=== PATIENT | male | born 1970 ===

== ENCOUNTER 2020-05-16 09:29 | Outpatient (REF) | payer OTHER, SELFPAY | END 2020-05-16 09:30 | disposition home or self-care (01) | LOC: HO.LAB 09:29 | PROVIDERS: PCP Physician Assistant; Visit Provider Nurse Practitioner Family | DX: Z13.89 Encounter for screening for other disorder (principal) ==

== ENCOUNTER 2020-05-28 09:36 | Outpatient (REF) | payer OTHER, SELFPAY ==
[2020-05-28 10:24] LABS: MANUAL DIFF FLAG NO
[2020-05-28 10:30] LABS: Basophils Percent Auto 0.2 % (0-2); Eosinophils Absolute Auto 0.2 X10*3/uL (0.0-0.4); Eosinophils Percent Auto 4.1 % (0-4); Hematocrit 42.4 % (42-52); Hemoglobin 14.8 g/dl (14.0-18.0); Lymphocytes Absolute Auto 2.1 X10*3/uL (1.2-4.9); Lymphocytes Percent Auto 46.5 % (20-40); Mean Corpuscular HGB Conc 34.9 g/dl (31.0-36.0); Mean Corpuscular Hemoglobin 32.2 pg (27.0-33.0); Mean Corpuscular Volume 92.2 fL (80-98); Mean Platelet Volume 10.6 fL (9.4-12.4); Monocytes Absolute Auto 0.5 X10*3/uL (0.1-1.2); Monocytes Percent Auto 11.1 % (2-11); Neutrophils Absolute Auto 1.7 X10*3/uL (2.0-8.3); Neutrophils Percent Auto 38.1 % (45-73); Platelet Count 223 X10*3/uL (160-400); Red Cell Distribution Width 12.5 % (11.0-16.0); White Blood Count 4.4 X10*3/uL (4.8-10.8)
[2020-05-28 11:19] LABS: Anion Gap 12 (12-20); Blood Urea Nitrogen 12 mg/dL (9-16); Calcium 9.4 mg/dL (8.4-10.2); Carbon Dioxide 28 mmol/L (22-29); Chloride 103 mmol/L (96-108); Cholesterol 208 mg/dL; Estimated Glomerular Filt Rate > 60; Glucose Fasting 92 mg/dL (60-99); HDL Cholesterol 52 mg/dL; LDL Cholesterol Calculated 122 mg/dl; Potassium 4.4 mmol/l (3.3-5.1); Sodium 139 mmol/L (135-145); Triglycerides 173 mg/dL
== END 2020-05-28 09:37 | disposition home or self-care (01) ==
LOC: HO.LAB 09:36
PROVIDERS: PCP Physician Assistant; Visit Provider Nurse Practitioner Family
DX: R42 Dizziness and giddiness (principal)
CPT/HCPCS: 36415; 80048; 80061; 85025

== ENCOUNTER 2020-10-31 09:49 | Outpatient (REF) | payer OTHER, SELFPAY ==
[2020-10-31 12:01] LABS: Hematocrit 40.8 % (42-52); Hemoglobin 13.9 g/dl (14.0-18.0); Mean Corpuscular HGB Conc 34.1 g/dl (31.0-36.0); Mean Corpuscular Hemoglobin 31.4 pg (27.0-33.0); Mean Corpuscular Volume 92.1 fL (80-98); Mean Platelet Volume 10.8 fL (9.4-12.4); Platelet Count 194 X10*3/uL (160-400); Red Blood Count 4.43 X10*6/uL (4.60-5.80); Red Cell Distribution Width 12.7 % (11.0-16.0)
[2020-10-31 12:11] LABS: Alanine Aminotransferase 34 U/L (0-40); Albumin Level 4.6 g/dL (3.5-5.0); Alkaline Phosphatase 56 U/L (39-117); Anion Gap 12 (12-20); Aspartate Amino Transferase 31 U/L (5-37); Bilirubin Total 0.6 mg/dL (0.0-1.0); Blood Urea Nitrogen 12 mg/dL (9-16); Calcium 9.3 mg/dL (8.4-10.2); Carbon Dioxide 24 mmol/L (22-29); Chloride 106 mmol/L (96-108); Cholesterol 198 mg/dL; Estimated Glomerular Filt Rate > 60; Glucose Fasting 87 mg/dL (60-99); HDL Cholesterol 45 mg/dL; Iron 88 mcg/dL (45-160); LDL Cholesterol Calculated 119 mg/dl; Percent Iron Saturation 28 % (15-50); Potassium 4.1 mmol/L (3.3-5.1); Sodium 138 mmol/L (135-145); Total Iron Binding Capacity 309 mcg/dL (228-428); Total Protein 7.9 g/dL (6.5-8.0); Triglycerides 173 mg/dL; Unsaturated Iron Binding 221 ug/dL
[2020-10-31 12:12] LABS: TSH reflex Free T4 0.69 uIU/mL (0.32-4.0)
[2020-10-31 12:29] LABS: Folate 14.7 ng/mL (> or = 4.0); Vitamin B12 233 pg/mL (200-900)
[2020-10-31 12:45] LABS: Microalbum/Creatinine Ratio Ur 7.6 ug/mg cr
[2020-10-31 12:59] LABS: Prostate Specific Antigen Scr 1.27 ng/mL (<0.05-4.0)
== END 2020-10-31 09:50 | disposition home or self-care (01) ==
LOC: HO.LAB 09:49
PROVIDERS: PCP Physician Assistant; Visit Provider Physician Assistant
DX: Z12.5 Encounter for screening for malignant neoplasm of prostate (principal); D50.9 Iron deficiency anemia, unspecified; G25.81 Restless legs syndrome; I10 Essential (primary) hypertension
CPT/HCPCS: 36415; 80053; 80061; 82043; 82607; 82746; 83540; 84153; 84443; 85027

== ENCOUNTER 2021-03-17 09:36 | Outpatient (REF) | payer OTHER, SELFPAY ==
[2021-03-17 10:27] LABS: Hematocrit 42.6 % (42-52); Hemoglobin 14.6 g/dl (14.0-18.0); Mean Corpuscular HGB Conc 34.3 g/dl (31.0-36.0); Mean Corpuscular Hemoglobin 31.5 pg (27.0-33.0); Mean Platelet Volume 10.7 fL (9.4-12.4); Platelet Count 201 X10*3/uL (160-400); Red Blood Count 4.63 X10*6/uL (4.60-5.80); Red Cell Distribution Width 12.5 % (11.0-16.0)
[2021-03-17 10:51] LABS: Alanine Aminotransferase 56 U/L (0-40); Albumin Level 4.6 g/dL (3.5-5.0); Alkaline Phosphatase 62 U/L (39-117); Anion Gap 11 (12-20); Aspartate Amino Transferase 42 U/L (5-37); Bilirubin Total 0.4 mg/dL (0.0-1.0); Blood Urea Nitrogen 10 mg/dL (9-16); Calcium 9.7 mg/dL (8.4-10.2); Carbon Dioxide 25 mmol/L (22-29); Chloride 106 mmol/L (96-108); Cholesterol 216 mg/dL; Estimated Average Glucose 111 mg/dL; Estimated Glomerular Filt Rate > 60; Glucose Fasting 96 mg/dL (60-99); HDL Cholesterol 48 mg/dL; Hemoglobin A1c % 5.5 %; Iron 52 mcg/dL (45-160); LDL Cholesterol Calculated 136 mg/dl; Percent Iron Saturation 15 % (15-50); Potassium 4.6 mmol/L (3.3-5.1); Sodium 137 mmol/L (135-145); Total Iron Binding Capacity 338 mcg/dL (228-428); Total Protein 8.2 g/dL (6.5-8.0); Triglycerides 162 mg/dL; Unsaturated Iron Binding 286 ug/dL
[2021-03-17 11:15] LABS: TSH reflex Free T4 1.27 uIU/mL (0.32-4.0)
== END 2021-03-17 09:37 | disposition home or self-care (01) ==
LOC: HO.LAB 09:36
PROVIDERS: PCP Physician Assistant; Visit Provider Physician Assistant
DX: I10 Essential (primary) hypertension (principal); D50.9 Iron deficiency anemia, unspecified; R51.9 Headache, unspecified
CPT/HCPCS: 36415; 80053; 80061; 83036; 83540; 84443; 85027

== ENCOUNTER 2021-05-26 10:07 | Outpatient (REF) | payer OTHER, SELFPAY ==
--- NOTE | ~2021-05-26 | US_ITS ---
EXAMINATION: US ABDOMEN COMPLETE CLINICAL INFORMATION: Elevated LFTs. COMPARISON: Renal ultrasound with bladder 10/12/2017. TECHNIQUE: Real-time imaging of the abdominal viscera. Technically difficult study secondary to bowel gas. FINDINGS: PANCREAS: Normal. ABDOMINAL AORTA: Proximal and mid abdominal aorta are not well visualized due to bowel gas. The distal abdominal aorta is normal in caliber. INFERIOR VENA CAVA: Visualized portions are normal. LIVER: The liver is normal in size. The liver contour is normal. The liver echotexture is increased. No focal hepatic lesion. There is no intrahepatic biliary duct dilatation seen. GALLBLADDER: Normal. The gallbladder is physiologically distended without evidence of stones, sludge, polyps, wall thickening or pericholecystic fluid. COMMON BILE DUCT: Normal in caliber measuring 0.23 cm in diameter. RIGHT KIDNEY: Normal. No hydronephrosis. No renal calculi or focal parenchymal lesions. The kidney measures 11.9 cm in maximum dimension. LEFT KIDNEY: Normal. No hydronephrosis. No renal calculi or focal parenchymal lesions. The kidney measures 11.0 cm in maximum dimension. SPLEEN: Normal. The spleen measures 9.0 cm in maximum dimension. FREE FLUID: None. US/US abdomen complete IMPRESSION: Limited exam. Echogenic liver probably representing fatty infiltration. Limited visualization of the abdominal aorta.
== END 2021-05-26 10:08 | disposition home or self-care (01) ==
LOC: HO.HMGCX 10:07
PROVIDERS: PCP Physician Assistant; Visit Provider Physician Assistant
DX: R79.89 Other specified abnormal findings of blood chemistry (principal)
CPT/HCPCS: 76700

== ENCOUNTER 2021-09-22 09:38 | Outpatient (REF) | payer OTHER, SELFPAY ==
[2021-09-22 10:31] LABS: Hematocrit 43.4 % (42.0-52.0); Hemoglobin 14.5 g/dl (14.0-18.0); Mean Corpuscular HGB Conc 33.4 g/dl (31.0-36.0); Mean Corpuscular Hemoglobin 30.9 pg (27.0-33.0); Mean Corpuscular Volume 92.5 fL (80.0-98.0); Mean Platelet Volume 10.6 fL (9.4-12.4); Platelet Count 208 X10*3/uL (160-400); Red Blood Count 4.69 X10*6/uL (4.60-5.80); Red Cell Distribution Width 12.5 % (11.0-16.0); White Blood Count 4.5 X10*3/uL (4.8-10.8)
[2021-09-22 11:07] LABS: Creatinine Urine 249.33 mg/dL; Microalbum/Creatinine Ratio Ur 9.6 ug/mg cr
[2021-09-22 11:11] LABS: Alanine Aminotransferase 44 U/L (0-40); Albumin Level 4.7 g/dL (3.5-5.0); Alkaline Phosphatase 63 U/L (39-117); Anion Gap 12 (12-20); Aspartate Amino Transferase 32 U/L (5-37); Bilirubin Total 0.8 mg/dL (0.0-1.0); Blood Urea Nitrogen 12 mg/dL (9-16); Calcium 9.7 mg/dL (8.4-10.2); Carbon Dioxide 27 mmol/L (22-29); Chloride 105 mmol/L (96-108); Cholesterol 216 mg/dL; Estimated Glomerular Filt Rate > 60; Glucose Fasting 93 mg/dL (60-99); HDL Cholesterol 48 mg/dL; LDL Cholesterol Calculated 137 mg/dl; Potassium 4.4 mmol/L (3.3-5.1); Sodium 140 mmol/L (135-145); Total Protein 8.4 g/dL (6.5-8.0); Triglycerides 157 mg/dL
[2021-09-22 11:27] LABS: Prostate Specific Antigen Scr 0.93 ng/mL (<0.05-4.0); TSH reflex Free T4 0.64 uIU/mL (0.32-4.0)
== END 2021-09-22 09:39 | disposition home or self-care (01) ==
LOC: HO.LAB 09:38
PROVIDERS: PCP Physician Assistant; Visit Provider Physician Assistant
DX: I10 Essential (primary) hypertension (principal); Z12.5 Encounter for screening for malignant neoplasm of prostate
CPT/HCPCS: 36415; 80053; 80061; 82043; 84153; 84443; 85027

== ENCOUNTER → 2021-10-14 10:43 | Outpatient (REF) | payer OTHER, SELFPAY | LOC: HO.SL 10:43 | PROVIDERS: PCP Physician Assistant; Visit Provider Physician Assistant | DX: Z13.89 Encounter for screening for other disorder (principal) ==

== ENCOUNTER 2022-03-15 09:42 | Outpatient (REF) | payer OTHER, SELFPAY ==
[2022-03-15 10:56] LABS: Hematocrit 42.2 % (42.0-52.0); Hemoglobin 14.5 g/dl (14.0-18.0); Mean Corpuscular HGB Conc 34.4 g/dl (31.0-36.0); Mean Corpuscular Hemoglobin 31.5 pg (27.0-33.0); Mean Corpuscular Volume 91.7 fL (80.0-98.0); Mean Platelet Volume 10.5 fL (9.4-12.4); Platelet Count 191 X10*3/uL (160-400); Red Cell Distribution Width 12.3 % (11.0-16.0); White Blood Count 4.3 X10*3/uL (4.8-10.8)
[2022-03-15 11:31] LABS: Alanine Aminotransferase 40 U/L (0-40); Albumin Level 4.5 g/dL (3.5-5.0); Alkaline Phosphatase 55 U/L (39-117); Anion Gap 14 (12-20); Aspartate Amino Transferase 32 U/L (5-37); Bilirubin Total 0.7 mg/dL (0.0-1.0); Blood Urea Nitrogen 15 mg/dL (9-16); Calcium 9.3 mg/dL (8.4-10.2); Carbon Dioxide 26 mmol/L (22-29); Chloride 103 mmol/L (96-108); Cholesterol 216 mg/dL; Estimated Glomerular Filt Rate > 60; Glucose Fasting 95 mg/dL (60-99); HDL Cholesterol 47 mg/dL; LDL Cholesterol Calculated 140 mg/dl; Potassium 4.4 mmol/L (3.3-5.1); Sodium 139 mmol/L (135-145); Total Protein 8.1 g/dL (6.5-8.0); Triglycerides 147 mg/dL
[2022-03-15 11:47] LABS: Estimated Average Glucose 111 mg/dL; Hemoglobin A1c % 5.5 %
[2022-03-15 11:54] LABS: TSH reflex Free T4 1.16 uIU/mL (0.32-4.0)
== END 2022-03-15 09:43 | disposition home or self-care (01) ==
LOC: HO.LAB 09:42
PROVIDERS: PCP Physician Assistant; Visit Provider Physician Assistant
DX: I10 Essential (primary) hypertension (principal); E78.9 Disorder of lipoprotein metabolism, unspecified
CPT/HCPCS: 36415; 80053; 80061; 83036; 84443; 85027

== ENCOUNTER → 2022-07-06 09:42 | Outpatient (REF) | payer OTHER, SELFPAY | LOC: HO.SL 09:42 | PROVIDERS: PCP Physician Assistant; Visit Provider Physician Assistant | DX: G47.33 Obstructive sleep apnea (adult) (pediatric) (principal) | CPT/HCPCS: 95806 ==

== ENCOUNTER → 2022-08-19 10:24 | Outpatient (BNVA) | payer OTHER, SELFPAY | PROVIDERS: PCP Physician Assistant; Visit Provider Internal Medicine | DX: Z13.89 Encounter for screening for other disorder (principal) ==

== ENCOUNTER 2022-09-02 10:00 | Outpatient (RCR) | payer OTHER, SELFPAY ==
--- NOTE | 2022-08-05 16:49 | MHC.PT.EP ---
[facility] [place] Office [place] Office [place] Office [address] Miguel [place] [address] [phone] F: [phone] F: [phone] F: [phone] F: [phone] Physical Therapy Plan of Care Date of Evaluation: Date of Surgery: Diagnosis: muscle spasm of back Assessment: Pt is a 52 y/o male referred to PT for eval and treat of muscle spasm of back who presents with lumbosacral dysfunction resulting in decreased tolerance for lifting objects of weight, performing regular gym fitness activities, as well as standing and walking for duration secondary to pelvic asymmetry, decreased core strength, lumbar P-A hypomobility, increased lumbar tissue tension, and pain. Pt is deemed an appropriate candidate to receive skilled PT services to address their physical impairments in order to improve their functional ability. Frequency and Duration: The patient will be seen 2 x/ wk x 4 wks. Short Term Goals: Initiate HEP. Improve baseline pain with activity to < 4/10; initial: 6/10. Intermediate Goals: I with home program. Pt will improve core strength to < fair +; initial: fair, limited by pain. Pt will be able to lift objects of weight with managed Sx. Improve Sheldon by at least 9 points. Treatment Plan: Modalities to reduce pain, spasms and effusion. Manual therapy to restore motion and function. Therapeutic exercise to improve strength and flexibility. Neuromuscular re-education for posture and balance. Therapeutic activities to return to functional activities of daily living. Electronically signed by: Giovani Quiros PT Please sign and return to therapist. Thank you for your referral.
--- NOTE | 2022-09-02 10:57 | MHC.PT.DC ---
[facility] [place] [facility] [place] [facility] [place] [address] Miguel Washington 140 [facility] [phone] F: [phone] F: [phone] F: [phone] F: [phone] Physical Therapy Discharge Report Diagnosis: muscle spasm of back Date of Surgery: Date of Evaluation: 08/05/22 Date of Discharge: 09/02/22 Treatments to Date: 6 Cancellations to Date: No Shows to Date: Discharge Status: Achieved Goals Improved Function Independent with HEP Discharge Summary: 09/02: Italo has been an active and motivated participant in his therapy in and out of the clinic. He is I with his home program of lumbar mobility and stability, he has met his therapeutic goals, and is in agreement with DC at this time. Electronically signed by: Giovani Quiros PT. Please sign and return to therapist. Thank you for your referral.
== END 2022-09-02 10:57 | disposition home or self-care (01) ==
LOC: HO.PTCHIC 10:00
PROVIDERS: PCP Physician Assistant; Visit Provider Nurse Practitioner Family
DX: M62.830 Muscle spasm of back (principal)
CPT/HCPCS: 97110; 97161

== ENCOUNTER → 2022-09-30 10:44 | Outpatient (BNVA) | payer OTHER, SELFPAY | PROVIDERS: PCP Physician Assistant; Visit Provider Internal Medicine | DX: Z13.89 Encounter for screening for other disorder (principal) ==

== ENCOUNTER 2022-10-04 09:41 | Outpatient (REF) | payer OTHER, SELFPAY ==
[2022-10-04 09:59] LABS: Mean Corpuscular HGB Conc 34.1 g/dl (31.0-36.0); Mean Corpuscular Hemoglobin 31.9 pg (27.0-33.0); Mean Corpuscular Volume 93.4 fL (80.0-98.0); Mean Platelet Volume 10.1 fL (9.4-12.4); Platelet Count 202 X10*3/uL (160-400); Red Blood Count 4.39 X10*6/uL (4.60-5.80); White Blood Count 5.1 X10*3/uL (4.8-10.8)
[2022-10-04 11:06] LABS: Alanine Aminotransferase 25 U/L (0-40); Albumin Level 4.5 g/dL (3.5-5.0); Alkaline Phosphatase 62 U/L (39-117); Anion Gap 13 (12-20); Aspartate Amino Transferase 23 U/L (5-37); Bilirubin Total 0.3 mg/dL (0.0-1.0); Blood Urea Nitrogen 11 mg/dL (9-16); Calcium 9.3 mg/dL (8.4-10.2); Carbon Dioxide 25 mmol/L (22-29); Chloride 110 mmol/L (96-108); Cholesterol 207 mg/dL; Estimated Glomerular Filt Rate > 60; Glucose Fasting 98 mg/dL (60-99); HDL Cholesterol 51 mg/dL; LDL Cholesterol Calculated 134 mg/dl; Potassium 4.4 mmol/L (3.3-5.1); Sodium 144 mmol/L (135-145); Triglycerides 110 mg/dL
[2022-10-04 11:26] LABS: Prostate Specific Antigen Scr 1.29 ng/mL (<0.05-4.0); TSH reflex Free T4 1.03 uIU/mL (0.32-4.0)
[2022-10-04 12:54] LABS: Creatinine Urine 200.98 mg/dL; Microalbum/Creatinine Ratio Ur 13.4 ug/mg cr
== END 2022-10-04 09:42 | disposition home or self-care (01) ==
LOC: HO.LAB 09:41
PROVIDERS: PCP Physician Assistant; Visit Provider Physician Assistant
DX: Z12.5 Encounter for screening for malignant neoplasm of prostate (principal); E78.9 Disorder of lipoprotein metabolism, unspecified; I10 Essential (primary) hypertension
CPT/HCPCS: 36415; 80053; 80061; 82043; 84153; 84443; 85027

== ENCOUNTER 2023-03-03 11:58 | Outpatient (AMB) | payer OTHER, SELFPAY ==
--- NOTE | 2023-03-03 12:28 | AM.OFFWIN_ITS ---
Intake Vital Signs 03/03/23 12:32 Height 5 ft 7 in Weight 186 lb 6 oz BMI 29.2 BP 134/72 Blood Pressure Location Lt brachial Pulse 77 Pulse Source Pulse Oximeter Temp 98.4 F Temp Source Temporal Artery Scan Pulse Oximetry (%) 97 Oxygen Delivery Method Room Air Intake Visit Reasons: ESt/left side lower back pain Intake Note: Pt is here c/o left lower leg pain since yesterday morning. 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 He would home instruction this our woke up this morning with worsening pain. Denies fevers chills. 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 Assessment & Plan Assessment & Plan (1) Lumbar strain: Code(s): S39.012A - Strain of muscle, fascia and tendon of lower back, initial encounter Qualifiers: Encounter type: initial encounter Qualified Code(s): S39.012A - Strain of muscle, fascia and tendon of lower back, initial encounter Plan symptoms, examination most consistent with lumbar sacral strain. Low suspicion for acute pathology given no risk factors. Will provide symptomatic treatment. Discharge instructions, follow up and treatment are discussed with patient in my usual fashion. Alternatives in treatment are also discussed. The patient will return for worsening symptoms or as needed. Advised that any labs/imaging ordere d will be followed up on and contact made if further treatment needed. Counseled that patient's condition may require further evaluation and/or treatment. Symptoms of concern for worsening disorder discussed in detail in my customary manner. Patient does verbalize understanding of the plan, there are no apparent barriers to communication. The patient is given the opportunity to ask questions and have them answered to his/her satisfaction Medications: New lidocaine 5% leave on most painful area for up to 12 hrs 1 patch topical DAILY 15 ea 0RF meloxicam 7.5 mg PO DAILY 14 tabs 0RF cyclobenzaprine 5 mg PO BEDTIME PRN 10 tabs 0RF muscle spasm Coding Level of Care Code Est Pt Level 3 (08787) Diagnoses Strain of lumbar region, initial encounter S39.012A Encounter type: initial encounter
[2023-03-03 12:32] VITALS: BP 134/72; PULSE 77; TEMP 36.9; O2SAT 97; BMI 29.2
== END 2023-03-03 12:58 | disposition home or self-care (01) ==
PROVIDERS: PCP Physician Assistant; Visit Provider Physician Assistant
DX: S39.012A Strain of muscle, fascia and tendon of lower back, initial encounter (principal); Z04.2 Encounter for examination and observation following work accident
CPT/HCPCS: 99213

== ENCOUNTER 2023-03-17 09:41 | Outpatient (AMB) | payer OTHER, SELFPAY ==
[2023-03-17 09:49] VITALS: BP 130/72; PULSE 68; O2SAT 97; BMI 30.4
--- NOTE | 2023-03-17 09:49 | A.OFFVIS_ITS ---
Intake Vital Signs 03/17/23 09:49 Height 5 ft 7 in Weight 194 lb BMI 30.4 BP 130/72 Blood Pressure Location Lt brachial Position Sitting Pulse 68 Pulse Source Pulse Oximeter Pulse Oximetry (%) 97 Oxygen Delivery Method Room Air Intake Visit Reasons: princess Intake Note: pt is here for follow up and states he is using cpap and doing well. 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 He uses nail mask, and uses the CPAP daily. Misses only once in a while especially on the weekends. Sleeps very good with the use of CPAP. He denies daytime sleepiness. No issues with the interface are CPAP device. Weight akers he has actually gained some weight. 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 Cognitive needs: No Hearing needs: No Vision needs: Yes (glasses) Review of Systems Const All systems reviewed & are unremarkable except as noted in HPI and below Eyes Reports no additional complaints ENT Reports no additional complaints Card Denies chest pain, Denies irregular heart rhythm and Denies leg edema Resp Reports no additional complaints GI Reports no additional complaints Reports no additional complaints Musc Reports back pain (Paralumbar muscle spasm) Skin/Breast Reports system reviewed and no additional complaints, except as documented Neuro Reports no additional complaints Psych Reports depression (Mild being treated) Endo Reports no additional complaints Zenon/Lymph Reports no additional complaints Aller/Immun Reports no additional complaints Physical Exam Vital Signs: Last Vital Signs Pulse 68 03/17/23 09:49 BP 130/72 03/17/23 09:49 Pulse Ox 97 03/17/23 09:49 Oxygen Delivery Method Room Air 03/17/23 09:49 BMI result Body Mass Index 30.4 Const General: healthy appearing, comfortable, no acute distress, alert and awake Orientation/consciousness: patient oriented x3 HEENT Other: THE MAIN ABNORMALITY IS THAT OF AN OVERBITE, AND [id number] REGRESSION OF THE LOWER JAW. HIS UPPER AIRWAYS SPACE IS COMPROMISED AND MALLAMPATI SCALE= 4 Head: Yes normal to inspection General nose exam: No nasal polyps present and No nasal discharge present Face and sinus: Yes sinuses nontender Mouth: oropharynx normal Throat: Yes posterior oropharynx normal Eyes General: appearance normal, both eyes and all related structures Neck Neck: Yes normal visual inspection, Yes no lymphadenopathy, Yes trachea midline, Yes no JVD and Yes other (Neck circumference 16 in) Thyroid: Thyroid normal Chest Chest palpation & inspection: normal inspection of the chest, normal palpation of entire chest wall and no tenderness Resp Effort & Inspection: normal respiratory effort Auscultation: clear to auscultation bilaterally, no crackles and no wheezes Cardio Palpation: normal PMI Rate: regular rate Rhythm: regular rhythm Heart sounds: no gallops and no murmurs Peripheral pulses: Peripheral pulses 2+ throughout GI Palpation (GI): Soft to palpation, nontender, No hepatosplenomegaly present and no masses Auscultation: normal bowel sounds Back/Spine/Pelvis Thoracic/Lumbar Spine: thoracic and lumbar spine normal to inspection Skin General skin exam: no rashes or lesions noted Neuro General: patient oriented x3 and no focal motor deficits Cranial nerves: Yes CN's II-XII intact bilaterally Extrem General: Yes normal to inspection, Yes no clubbing, cyanosis or edema and Yes no calf tenderness Psych Appearance: grossly normal and well kempt Speech and movement: Normal speech and movement present Results Reviewed Results Reviewed: Compliance report for the last 30 nights is reviewed. He has used 25/30 nights, 83%. Average use per night 7 hours 52 minutes Median pressure 10.3 95th percentile 12.8. No significant air leak is recorded. Residual AHI 2.0 Assessment & Plan Assessment & Plan (1) PRINCESS (obstructive sleep apnea): Comment: THIS GENTLEMAN HAS MODERATELY SEVERE OBSTRUCTIVE SLEEP APNEA. THE UNDERLYING ETIOLOGY IS. 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 HE IS USING CPAP REGULARLY AND BENEFITING. COMPLIANCE IS GOOD. HE IS ENCOURAGED TO KEEP ON USING IT EVERY NIGHT. AT LEAST FOR 6 HOURS WILL RECHECK HIM IN SIX MONTHS. Code(s): G47.33 - Obstructive sleep apnea (adult) (pediatric) (2) Allergic rhinitis: Comment: HE HAS MILD ALLERGIC RHINITIS WHICH FLARES UP OFF AND ON. NO ACTIVE TREATMENT NEEDED AT THIS TIME. Code(s): J30.9 - Allergic rhinitis, unspecified Coding Level of Care Code Est Pt Level 3 (76345) Diagnoses PRINCESS (obstructive sleep apnea) G47.33 Allergic rhinitis J30.9
== END 2023-03-17 10:07 | disposition home or self-care (01) ==
PROVIDERS: PCP Physician Assistant; Visit Provider Internal Medicine
DX: G47.33 Obstructive sleep apnea (adult) (pediatric) (principal); J30.9 Allergic rhinitis, unspecified
CPT/HCPCS: 99213

== ENCOUNTER → 2023-03-17 09:41 | Outpatient (BNVA) | payer OTHER, SELFPAY | PROVIDERS: PCP Physician Assistant; Visit Provider Internal Medicine ==

== ENCOUNTER 2023-03-29 09:24 | Outpatient (REF) | payer OTHER, SELFPAY ==
[2023-03-29 10:33] LABS: Hemoglobin 13.9 g/dl (14.0-18.0); Mean Corpuscular HGB Conc 34.8 g/dl (31.0-36.0); Mean Corpuscular Hemoglobin 32.4 pg (27.0-33.0); Mean Corpuscular Volume 93.2 fL (80.0-98.0); Mean Platelet Volume 10.7 fL (9.4-12.4); Platelet Count 187 X10*3/uL (160-400); Red Blood Count 4.29 X10*6/uL (4.60-5.80); Red Cell Distribution Width 12.9 % (11.0-16.0); White Blood Count 4.5 X10*3/uL (4.8-10.8)
[2023-03-29 10:59] LABS: Alanine Aminotransferase 60 U/L (0-40); Albumin Level 4.4 g/dL (3.5-5.0); Alkaline Phosphatase 56 U/L (39-117); Anion Gap 12 (12-20); Aspartate Amino Transferase 94 U/L (5-37); Bilirubin Total 0.5 mg/dL (0.0-1.0); Blood Urea Nitrogen 13 mg/dL (9-16); Calcium 9.2 mg/dL (8.4-10.2); Carbon Dioxide 25 mmol/L (22-29); Chloride 106 mmol/L (96-108); Cholesterol 189 mg/dL (<200); Estimated Glomerular Filt Rate > 60; Glucose Fasting 97 mg/dL (60-99); HDL Cholesterol 44 mg/dL (>40); LDL Cholesterol Calculated 116 mg/dL (<100); Potassium 4.1 mmol/L (3.3-5.1); Sodium 139 mmol/L (135-145); Triglycerides 149 mg/dL (<150)
== END 2023-03-29 09:25 | disposition home or self-care (01) ==
LOC: HO.LAB 09:24
PROVIDERS: PCP Physician Assistant; Visit Provider Physician Assistant
DX: E78.9 Disorder of lipoprotein metabolism, unspecified (principal); I10 Essential (primary) hypertension; R79.89 Other specified abnormal findings of blood chemistry
CPT/HCPCS: 36415; 80053; 80061; 85027

== ENCOUNTER 2023-03-31 10:00 | Outpatient (AMB) | payer OTHER, SELFPAY ==
--- NOTE | 2023-03-31 10:02 | MHC.PC.OV ---
Vital Signs 03/31/23 10:03 Height 5 ft 7 in Weight 194 lb 6 oz BMI 30.4 BP 122/70 Blood Pressure Location Lt brachial Position Sitting Pulse 75 Pulse Source Pulse Oximeter Pulse Oximetry (%) 95 Oxygen Delivery Method Room Air Intake Visit Reasons: PE Intake Note: Patient is here today for a physical. Finisher Merchant Products Required: No Tray Delivery Aide: Not Required per policy Accompanied by: Self / Same As Patient Allergies No Known Allergies Allergy (Verified 03/31/23 10:10) Medication List - Last Reconciled 03/31/23 by Melvin Coreas PA-C amlodipine 5 mg PO DAILY blood pressure test kit-large As directed sertraline (Zoloft) 50 mg PO DAILY 90 days Tobacco use date assessed: 03/31/23 Dental Screening Dental Screen Date: 03/31/23 Did you have a dental visit in the last 12 months?: No Did you have a dental problem in the last 6 months where you did not have access to dental care?: No Was dental information given to patient?: No HPI PE HPI Details Patient is a 52-year-old male here today for an annual physical.? Patient has a past medical history significant hypertension, major depressive disorder obstructive sleep apnea. .. Concern--> reports having right pinky pain when he bends his finger. He denies any trauma to his right hand. Hypertension:? Blood pressure has been acceptable in office.? Continues on amlodipine 5 mg without any side effects. Major depressive disorder:?? Reports his depression has been well controlled with current SSRI therapy. Reports his father had this past summer. He is doing okay though grieving. ? Denies any SI or HI .He does report his family members have told him he appears to be less stressed. . Obstructive sleep apnea: Recently had sleep study showing obstructive sleep apnea and has been started on CPAP machine, followed by pulmonology. He reports a bit more energy during the daytime since starting CPAP nightly. Labs: Reviewed labs with patient and noted elevated liver enzymes. He does report drinking on the weekends. Of note ultrasound of abdomen in 2020 did show fatty liver disease. PLAN: Will reduce our goal intake and recheck liver panel. Colonoscopy: Done [place] [address] Rosen, repeat 10 years Vaccines: Up-to-date with COVID vaccine, tetanus vaccine and shingles vaccine, needs PCV-20 Laboratory Tests 10/04/22 10/04/22 03/29/23 09:49 09:51 09:59 RBC 4.39 L 4.29 L Hgb 14.0 13.9 L Creatinine 0.78 AST 94 H ALT 60 H Cholesterol 207 189 LDL Cholesterol, C alc 134 116 H PSA Screen 1.29 TSH 1.03 Urine Microalbumin 27.0 PFSH Medical History Lumbar paraspinal muscle spasm Hypertension Vertigo Physical exam Surgical History History of hemorrhoidectomy (2018) History of rectal sphincterotomy (12/03/19) History of eye surgery Family History (Updated 03/31/23 @ 10:15 by Melvin Coreas PA-C) Mother Hypertension Father Alzheimer disease Paternal Uncle Colon polyps Sister Lupus Social History (Updated 03/31/23 @ 10:17 by Melvin Coreas PA-C) Housing: House Alcohol intake: current Alcohol intake frequency: a few times a month Alcohol type: beer Patient Tobacco Use Status: Former Tobacco user e-Cigarette/Vaping Use: Never Used Second Hand Smoke Exposure: No service: No Current occupational status: employed 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 Jagdish Escalante, Katia Alarcon, Uriel Zuñiga and colleagues, with an educational hemant from [employer]. Review of Systems Const Denies body aches, Denies chills, Denies excessive sweating, Denies fatigue, Denies fever(s) and Denies headache(s) Eyes Denies blurry vision ENT Denies dysphagia, Denies vertigo, Denies dizziness, Denies headache(s), Denies hearing loss and Denies tinnitus Card Denies chest pain, Denies chest pain with activity, Denies syncope, Denies irregular heart rhythm and Denies dyspnea Resp Denies chest congestion, Denies cough, Denies hemoptysis, Denies dyspnea and Denies wheezing GI Denies abdominal pain, Denies melena, Denies hematochezia, Denies coffee ground emesis, Denies dysphagia, Denies diarrhea, Denies nausea and Denies vomiting Denies difficulty urinating, Denies dysuria, Denies urinary frequency, Denies urinary hesitancy and Denies urinary urgency Musc Denies arthralgias, Denies limited range of motion, Denies muscle cramps and Denies muscle weakness Skin/Breast Denies rash and Denies skin ulcer Neuro Denies Abnormal speech present, Denies confusion, Denies vertigo, Denies dizziness, Denies syncope, Denies headache(s), Denies memory loss and Denies seizure-like activity Psych Denies anxiety, Denies confusion, Denies depression, Denies memory loss, Denies panic attacks and Denies paranoia Endo Denies excessive sweating, Denies fatigue, Denies flushing, Denies polydipsia and Denies polyuria Aller/Immun Denies wheezing Physical exam (Primary Care) Vital Signs: Last Vital Signs Pulse 75 03/31/23 10:03 BP 122/70 03/31/23 10:03 Pulse Ox 95 03/31/23 10:03 Oxygen Delivery Method Room Air 03/31/23 10:03 BMI result Body Mass Index 30.4 Tobacco/Smoking Status: Tobacco use Status Tobacco use date assessed 03/31/23 03/31/23 10:07 Patient Tobacco Use Status Former Tobacco user 03/31/23 10:17 e-Cigarette/Vaping Use Never Used 03/31/23 10:17 Thrive Assessment: Date of Thrive Assessment Date Thrive assessed 10/05/22 03/31/23 10:02 Const General: cooperative, comfortable, no acute distress, alert and awake; No confusion Orientation/consciousness: oriented to person, oriented to place, patient oriented x3 and No confusion HENMT Head: Yes normocephalic Ears: external ears normal and TM's normal bilaterally Face and sinus: No sinus tenderness Mouth: Normal oral and palatal mucosa present and tongue normal Teeth and gingiva: dentition normal and gingiva normal Throat: Yes posterior oropharynx normal, Yes tonsils normal and Yes uvula midline Eyes Conjunctivae: conjunctivae normal Sclerae: sclerae normal Pupils: Equal, round and reactive pupils present EOM: EOMs intact bilaterally Direct Ophthalmoscopy: No no photophobia Neck Neck: Yes no lymphadenopathy, No tender and Yes no JVD Thyroid: Thyroid normal Carotids: no bruits Chest Chest palpation & inspection: no tenderness Resp Effort & Inspection: normal respiratory effort, no audible wheezes, not labored and no stridor Auscultation: no crackles, no rales, no rhonchi and no wheezes Cardio Jugular venous distension: no JVD Rate: regular rate, not bradycardic and not tachycardic Rhythm: regular rhythm Bruits: no carotid bruits Peripheral pulses: Peripheral pulses 2+ throughout GI Inspection: Yes normal to inspection, No abdominal wall ecchymosis and No visible herniation Palpation (GI): Soft to palpation, nontender, no guarding, not rigid and No hepatosplenomegaly present Auscultation: normoactive bowel sounds General: Yes no CVA tenderness Back/Spine/Pelvis Back: no CVA tenderness and No back tenderness Cervical Spine: cervical ROM normal Thoracic/Lumbar Spine: thoracic and lumbar spine normal to inspection, straight leg raise negative bilaterally, No thoraco-lumbar ROM limited and No lumbar spinal tenderness Skin Lesions: no lesions Rashes: no rashes Wounds: no wounds Neuro General: oriented to person, oriented to place, patient oriented x3, CN's II-XI intact bilaterally and No confusion Cranial nerves: Yes Equal, round and reactive pupils present and Yes Normal accommodation reflex present Cognition (Neuro): normal cognition Speech: No Abnormal speech present Gait exam (Neuro): Normal gait present Motor exam (neuro): 5/5 motor strength present throughout Extrem Right upper extremity: full ROM; no cyanosis Left upper extremity: full ROM; no cyanosis Right lower extremity: no edema Left lower extremity: no edema Psych Appearance: grossly normal Mental Status: mental status grossly normal Affect: normal affect Attitude: cooperative Thought process: Normal thought process present Office Procedures Flu Questionnaire Does the patient have a severe egg allergy?: No Does the patient have severe life threatening allergies?: No Does the patient have a fever or illness today?: No Has the patient ever had Guillain-Sardis Syndrome?: No Has the patient ever had any past reaction to a flu shot?: No Flu Questionnaire Does the patient have a severe egg allergy?: No Does the patient have severe life threatening allergies?: No Does the patient have a fever or illness today?: No Has the patient ever had Guillain-S[place]is Syndrome?: No Has the patient ever had any past reaction to a flu shot?: No Immunizations flu vacc [id number] 6mos up(PF) 60 mcg(15 mcgx4)/0.5 mL IM syringe Performing Provider: Melvin Coreas PA-C Performing [place] [facility] [place] [facility] Documented (not given) by: TERRY Eastman on 03/31/23 10:07 Dose Route Admin Location Dispensed Lot Number Expiration Date NDC Wood Heel Finisher 0.5 mL IM mL VIS Given Date VIS Provided VIS Publication Date Single Vaccine 21 Eligibility Eligibility Date Funding Source flu vacc [id number] 6mos up(PF) 60 mcg(15 mcgx4)/0.5 mL IM syringe Performing Provider: Melvin Coreas PA-C Performing Location[place] [facility] [place] [facility] Administered by: Micki Bond RN on 03/31/23 10:20 Dose Route Admin Location Dispensed Lot Number Expiration Date ND Wood Heel Finisher 0.5 mL IM Right Deltoid 0.5 mL [id number] 12/25/23 [id number] [employer] VIS Given Date VIS Provided VIS Publication Date 03/31/23 Single Vaccine 21 Eligibility Eligibility Date Funding Source Not VFC Eligible 03/31/23 Private pneumoc 20-patrica conj-dip cr(PF) 0.5 mL IM syringe Performing Provider: Melvin Coreas PA-C Performing Location: [facility] Administered by: TERRY Oakley on 03/31/23 10:39 Dose Route Admin Location Dispensed Lot Number Expiration Date ND Wood Heel Finisher 0.5 mL IM Left Deltoid 0.5 mL [id number] 03/27/24 [employer] VIS Given Date VIS Provided VIS Publication Date 03/31/23 Single Vaccine 21 Eligibility Eligibility Date Funding Source Not VFC Eligible 03/31/23 Private Assessment and Plan Assessment & Plan (1) Physical exam: Code(s): Z00.00 - Encounter for general adult medical examination without abnormal findings (2) LUCY (obstructive sleep apnea): Comment: THIS GENTLEMAN HAS MODERATELY SEVERE OBSTRUCTIVE SLEEP APNEA. THE UNDERLYING ETIOLOGY IS. 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 HE IS USING CPAP REGULARLY AND BENEFITING. COMPLIANCE IS GOOD. HE IS ENCOURAGED TO KEEP ON USING IT EVERY NIGHT. AT LEAST FOR 6 HOURS WILL RECHECK HIM IN SIX MONTHS. Code(s): G47.33 - Obstructive sleep apnea (adult) (pediatric) Plan: Has been compliant with use of CPAP on a nightly basis. (3) Hypertension: Code(s): I10 - Essential (primary) hypertension Qualifiers: Hypertension type: primary hypertension Qualified Code(s): I10 - Essential (primary) hypertension Plan: Patient's blood pressure acceptable today in office. Will continue his current dose of amlodipine with goal blood pressure be below 140/90 (4) MDD (major depressive disorder): Code(s): F32.9 - Major depressive disorder, single episode, unspecified Qualifiers: Major depression recurrence: recurrent Active/Remission status: currently active Major depression episode severity: mild Qualified Code(s): F33.0 - Major depressive disorder, recurrent, mild Plan: Patient's depression reported as stable. Continues on Zoloft 50 mg daily with good effect. Otherwise denies any SI or HI (5) Elevated LFTs: Code(s): R79.89 - Other specified abnormal findings of blood chemistry Plan: Noted elevated liver enzymes on most recent labs. Denies any Tylenol use or supplement use. He does report drinking alcohol on the weekends. Will recheck liver enzymes. (6) Right hand pain: Code(s): M79.641 - Pain in right hand (7) Lumbar paraspinal muscle spasm: Code(s): M62.830 - Muscle spasm of back (8) Obese: Code(s): E66.9 - Obesity, unspecified Qualifiers: Body mass index: BMI 30.0-30.9 Obesity classification: adult class 1 (BMI 30 - 34.9) Obesity type: due to excess calories Serious obesity comorbidity presence: with serious comorbidity Qualified Code(s): E66.09 - Other obesity due to excess calories; Z68.30 - Body mass index [BMI] 30.0-30.9, adult Plan: Noted weight gain since last office visit. Does understand his BMI is over 30 will work on being more physically active and adapting to better eating habits to reduce his weight Orders: Orders Influenza [id number] Immunization Today Z23 - Encounter for immunization Influenza [id number] Immunization Today Z23 - Encounter for immunization Pneumococcal 20 Immunization Today Z23 - Encounter for immunization Medications: New flu vacc [id number] 6mos up(PF) 0.5 mL IM ONCE 0.5 mL 0RF Z23 - Encounter for immunization diclofenac sodium 50 mg PO DAILY 10 days 10 tabs 0RF M62.830 - Muscle spasm of back Refilled amlodipine 5 mg PO DAILY 90 tabs 2RF I10 - Essential (primary) hypertension Coding Level of Care Code Est Pt Prev Care 40-64y(54844) Diagnoses Physical exam Z00.00 LUCY (obstructive sleep apnea) G47.33 Primary hypertension I10 Hypertension type: primary hypertension Mild episode of recurrent major depressive disorder F33.0 Major depression recurrence: recurrent Active/Remission status: currently active Major depression episode severity: mild Elevated LFTs R79.89 Right hand pain M79.641 Lumbar paraspinal muscle spasm M62.830 Class 1 obesity due to excess calories with serious comorbidity and body mass index (BMI) of 30.0 to 30.9 in adult E66.09; Z68.30 Body mass index: BMI 30.0-30.9 Obesity classification: adult class 1 (BMI 30 - 34.9) Obesity type: due to excess calories Serious obesity comorbidity presence: with serious comorbidity
[2023-03-31 10:03] VITALS: BP 122/70; PULSE 75; O2SAT 95; BMI 30.4
== END 2023-03-31 10:43 | disposition home or self-care (01) ==
PROVIDERS: Visit Provider Physician Assistant
DX: Z00.00 Encounter for general adult medical examination without abnormal findings (principal); G47.33 Obstructive sleep apnea (adult) (pediatric); I10 Essential (primary) hypertension; Z23 Encounter for immunization; F33.0 Major depressive disorder, recurrent, mild; R79.89 Other specified abnormal findings of blood chemistry; M79.641 Pain in right hand; M62.830 Muscle spasm of back; E66.09 Other obesity due to excess calories; Z68.30 Body mass index [BMI] 30.0-30.9, adult
CPT/HCPCS: 90471; 90472; 90677; 90686; 99396

== ENCOUNTER 2023-04-18 14:09 | Outpatient (AMB) | payer OTHER, SELFPAY ==
[2023-04-18 14:21] VITALS: BP 141/84; PULSE 81; BMI 29.9
--- NOTE | 2023-04-18 14:21 | MHC.OFFVIS ---
Intake Vital Signs 04/18/23 14:21 Height 5 ft 7 in Weight 191 lb BMI 29.9 BP 141/84 H Blood Pressure Location Rt brachial Position Sitting Pulse 81 Intake Visit Reasons: abdominal pain ? hemorrhoids Intake Note: This patient presents for an assessment for abdominal pain and hemorrhoids. Patient c/o; reports rectal cramping, reports occasional rectal bleeding. Hotel Front Desk Clerk Required: No Accompanied by: Self / Same As Patient Allergies No Known Allergies Allergy (Verified 04/18/23 14:43) Medication List - Last Reconciled 04/18/23 by Yaron Arrieta MD amlodipine 5 mg PO DAILY blood pressure test kit-large As directed diclofenac sodium 50 mg PO DAILY 10 days ibuprofen 800 mg PO Q8H PRN 7 days sertraline (Zoloft) 50 mg PO DAILY 90 days HPI abdominal pain ? hemorrhoids HPI Details [age] year old male referred for hemorrhoid issues. He states that about 10 days ago, he noted pain in his rectum. He says that this happened for about 2 days. He felt that his hemorrhoids were swollen at that time. At some point, in notice blood on wiping. He feels much better now. He denies any problems with constipation He says that he had a history of hemorrhoidectomy about 3 years ago. [facility] Medical History (Updated 04/18/23 @ 14:57 by Yaron Arrieta MD) Bleeding hemorrhoids Lumbar paraspinal muscle spasm Hypertension Vertigo Physical exam Surgical History History of hemorrhoidectomy (2018) History of rectal sphincterotomy (12/03/19) History of eye surgery Family History Mother Hypertension Father Alzheimer disease Paternal Uncle Colon polyps Sister Lupus Social History (Updated 03/31/23 @ 10:17 by Melvin Coreas PA-C) Housing: House Alcohol intake: current Alcohol intake frequency: a few times a month Alcohol type: beer Patient Tobacco Use Status: Former Tobacco user e-Cigarette/Vaping Use: Never Used Second Hand Smoke Exposure: No service: No Current occupational status: employed 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 Cognitive needs: No Hearing needs: No Vision needs: Yes (glasses) Review of Systems Const Denies chills and Denies fever(s) Card Denies chest pain, Denies dyspnea and Denies dyspnea on exertion Resp Denies cough, Denies dyspnea and Denies dyspnea on exertion GI Reports hematochezia and Denies change in bowel habits Denies hematuria and Denies difficulty urinating Musc Denies back pain and Denies limited range of motion Neuro Denies focal weakness and Denies convulsions Psych Denies depression and Denies mood swings Physical Exam Const General: comfortable and no acute distress Orientation/consciousness: patient oriented x3 Neck Neck: Yes no lymphadenopathy Resp Auscultation: clear to auscultation bilaterally Cardio Rhythm: regular rhythm GI Other: Rectal exam shows non bulky external hemorrhoids on the left and the right side, anoscopy done Palpation (GI): Soft to palpation, nontender and no guarding Neuro General: patient oriented x3 Office Procedures Anoscopy He was in vinay-knife position. The anoscope was gently inserted. A full examination of the anal canal was done. He did have a mix of internal external hemorrhoidal columns both the left and right side. These were non bulky. There was no bleeding. There was no thrombosis. There was no fissure. There was no induration on digital exam [id number] Assessment & Plan Assessment & Plan (1) Bleeding hemorrhoids: Code(s): K64.9 - Unspecified hemorrhoids Plan: He had an episode of rectal pain and some bleeding about 10 days ago. He feels much better. Anoscopy and exam does show mixed internal and external hemorrhoidal columns. He currently does not seem to have any symptoms at this time. I did explain to him the option of hemorrhoidectomy for severe symptoms of hemorrhoids. I discussed the technique of this procedure as well as the risks, benefits, and alternatives He currently says that he feels well and does not want to undergo surgery as much as possible I will see him again in about 2 months to see how he is doing. I advised him on avoiding straining and constipation. Coding Level of Care Code New Pt Level 3 (56802) Diagnoses Bleeding hemorrhoids K64.9 CPT Codes Details - CPT: 43139-[id number] ([id number])
== END 2023-04-18 14:56 | disposition home or self-care (01) ==
PROVIDERS: PCP Physician Assistant; Visit Provider Surgery
DX: K64.9 Unspecified hemorrhoids (principal)
CPT/HCPCS: 46600; 99203

== ENCOUNTER → 2023-04-18 14:09 | Outpatient (BNVA) | payer OTHER, SELFPAY | PROVIDERS: PCP Physician Assistant; Visit Provider Surgery | DX: K64.8 Other hemorrhoids (principal); K64.4 Residual hemorrhoidal skin tags | CPT/HCPCS: 46600 ==

== ENCOUNTER 2023-06-16 13:07 | Outpatient (AMB) | payer OTHER, SELFPAY ==
[2023-06-16 13:10] VITALS: BP 139/86; PULSE 75; BMI 30.5
--- NOTE | 2023-06-16 13:10 | MHC.OFFVIS ---
Intake Vital Signs 06/16/23 13:10 Height 5 ft 7 in Weight 195 lb BMI 30.5 BP 139/86 Blood Pressure Location Rt brachial Position Sitting Pulse 75 Intake Visit Reasons: Hemorrhoids, 2 month follow up Intake Note: This patient presents for a two month follow-up assessment for hemorrhoids. Patient c/o; reports no complaints at this time. Poker Dealer Required: No Accompanied by: Self / Same As Patient Allergies No Known Allergies Allergy (Verified 06/16/23 13:15) Medication List - Last Reconciled 06/16/23 by Yaron Arrieta MD amlodipine 5 mg PO DAILY blood pressure test kit-large As directed diclofenac sodium 50 mg PO DAILY 10 days ibuprofen 800 mg PO Q8H PRN 7 days meclizine 25 mg PO TID PRN 10 days sertraline (Zoloft) 50 mg PO DAILY 90 days HPI Hemorrhoids, 2 month follow up HPI Details He is here for follow-up for his hemorrhoids. I had seen him in March 2023 because of pain and bleeding with this hemorrhoids. He says that he now feels much better. He is bleeding has resolved and he no longer has pain. He says that he has controlled his constipation by taking fiber supplements. [facility] Medical History Bleeding hemorrhoids Lumbar paraspinal muscle spasm Hypertension Vertigo Physical exam Surgical History History of hemorrhoidectomy (2017) History of rectal sphincterotomy (12/03/19) History of eye surgery Family History Mother Hypertension Father Alzheimer disease Paternal Uncle Colon polyps Sister Lupus Social History Housing: House Alcohol intake: current Alcohol intake frequency: a few times a month Alcohol type: beer Patient Tobacco Use Status: Former Tobacco user e-Cigarette/Vaping Use: Never Used Second Hand Smoke Exposure: No service: No Current occupational status: employed 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 Cognitive needs: No Hearing needs: No Vision needs: Yes (glasses) Review of Systems Const Denies chills and Denies fever(s) Card Denies chest pain, Denies dyspnea and Denies dyspnea on exertion Resp Denies cough, Denies dyspnea and Denies dyspnea on exertion GI Denies hematochezia and Denies change in bowel habits Denies hematuria and Denies difficulty urinating Musc Denies back pain and Denies limited range of motion Neuro Denies focal weakness and Denies convulsions Psych Denies depression and Denies mood swings Physical Exam Vital Signs: Last Vital Signs Pulse 75 06/16/23 13:10 BP 139/86 06/16/23 13:10 BMI result Body Mass Index 30.5 Const General: comfortable and no acute distress Resp Effort & Inspection: normal respiratory effort Cardio Rate: regular rate GI Other: Rectal exam-external hemorrhoids right more than the left, moderate sized, not tender, non inflamed Assessment & Plan Assessment & Plan (1) Bleeding hemorrhoids: Code(s): K64.9 - Unspecified hemorrhoids Plan: He has pain and bleeding with this hemorrhoids have resolved. He now takes fiber supplements and he says that this has helped a lot with this constipation. He says that he has good bowel movements and no longer has significant symptoms from his hemorrhoids. I did explain to him that if he has symptoms down the line he can come back to the office to be re-evaluated. He understands the option of hemorrhoidectomy for severe symptoms. Coding Level of Care Code Est Pt Level 2 (07979) Diagnoses Bleeding hemorrhoids K64.9
== END 2023-06-16 13:20 | disposition home or self-care (01) ==
PROVIDERS: PCP Physician Assistant; Visit Provider Surgery
DX: K64.9 Unspecified hemorrhoids (principal)
CPT/HCPCS: 99212

== ENCOUNTER → 2023-06-16 13:07 | Outpatient (BNVA) | payer OTHER, SELFPAY | PROVIDERS: PCP Physician Assistant; Visit Provider Surgery ==

== ENCOUNTER 2023-07-07 15:15 | Outpatient (AMB) | payer OTHER, SELFPAY ==
--- NOTE | 2023-07-07 15:20 | A.OFFPC_ITS ---
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 Accompanied by: Self / Same As Patient Allergies No Known Allergies Allergy (Verified 07/07/23 15:35) Medication List - Last Reconciled 07/07/23 by Eliza Downs MD amlodipine 5 mg PO DAILY blood pressure test kit-large As directed diclofenac sodium 50 mg PO DAILY 10 days ibuprofen 800 mg PO Q8H PRN 7 days meclizine 25 mg PO TID PRN 10 days sertraline (Zoloft) 50 mg PO DAILY 90 days Tobacco use date assessed: 07/07/23 Dental Screening Dental Screen Date: 07/07/23 Did you have a dental visit in the last 12 months?: No Did you have a dental problem in the last 6 months where you did not have access to dental care?: No Was dental information given to patient?: Patient has dentist HPI HPI Comments History of Present Illness Details This is a 53-year-old male with hypertension, GERD and major depressive disorder that complains today of left ear pain and hearing loss after being on a plane few days ago. Blood pressure stable. GERD stable with diet. Depression stable with sertraline. No fever or cough. No nasal congestion. Some wax in ear canal. [facility] Medical History (Updated 07/07/23 @ 16:09 by Eliza Downs MD) Bleeding hemorrhoids Lumbar paraspinal muscle spasm Hypertension Vertigo Physical exam Surgical History History of hemorrhoidectomy (2018) History of rectal sphincterotomy (12/03/19) History of eye surgery Family History Mother Hypertension Father Alzheimer disease Paternal Uncle Colon polyps Sister Lupus Social History Housing: House Alcohol intake: current Alcohol intake frequency: a few times a month Alcohol type: beer Patient Tobacco Use Status: Former Tobacco user e-Cigarette/Vaping Use: Never Used Second Hand Smoke Exposure: No service: No Current occupational status: employed 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 1. Little interest or pleasure in doing things: not at all 2. Feeling down, depressed, or hopeless: not at all 3. Trouble falling or staying asleep, or sleeping too much: not at all 4. Feeling tired or having little energy: not at all 5. Poor appetite or overeating: not at all 6. Feeling bad about yourself - or that you are a failure or have let yourself or your family down: not at all 7. Trouble concentrating on things, such as reading the newspaper or watching television: not at all 8. Moving or speaking so slowly that other people could have noticed. Or the opposite - being so fidgety or restless that you have been moving around a lot more than usual: not at all 9. Thoughts that you would be better off or of hurting yourself in some way: not at all Total score: 0 Depression Screening Interpretation: Negative Depression Screening Done: Yes 40739 - PHQ-9 Billing: Yes Source: Developed by Drs. Jagdish Escalante, Katia Alarcon, Uriel Zuñiga and colleagues, with an educational hemant from [employer]. Thrive Questionnaire Date Thrive assessed: 07/07/23 I am a: Patient What is your living situation today?: I have a steady place to live Within the past 12 months, did the food you bought not last and you didn't have the money to get more?: Never true Within the past 12 months, did you worry whether your food would run out before you got money to buy more?: Never true Do you have trouble paying for medicines?: No Do you have trouble getting transportation to medical appointments?: No Do you have trouble paying your heating and electricity bill?: No Do you have trouble taking care of your child, family member or friend?: No Do you have trouble with day-to-day activities such as bathing, preparing meals, shopping, managing finances, etc.?: No Are you currently unemployed and looking for a job?: No Are you interested in more education?: No Please select the resources that you would like help with: None Currently or been in a relationship where the following occur: no concerns repo rted AUDIT C Alcohol Use Questionnaire (AUDIT-C) 1. How often do you have a drink containing alcohol?: Never Total Score: 0 VANESSA-7 AMB Questionnaire VANESSA-7 Date VANESSA - 7 assessed: 07/07/23 Feeling nervous, anxious, or on edge: 0 = Not at all Not being able to stop or control worryin = Not at all Worrying too much about different things: 0 = Not at all Trouble relaxin = Not at all Being so restless that it is hard to sit still: 0 = Not at all Becoming easily annoyed or irritable: 0 = Not at all Feeling afraid as if something awful might happen: 0 = Not at all Total VANESSA-7 score (0-4 normal; 5-9 mild; 10-14 moderate; 15-21 severe): 0 Source: Developed by Drs. Jagdish Escalante, Katia Alarcon, Uriel Zuñiga and colleagues, with an educational hemant from [employer]. VANESSA-7 Assessment Billing VANESSA-7 Assessment Tool: VANESSA-7 Assessment 62698 Review of Systems Const All systems reviewed & are unremarkable except as noted in HPI and below Eyes Reports no additional complaints, Denies change in vision and Denies other visual disturbances ENT Reports otalgia Card Denies chest pain at rest, Denies chest pain with activity, Denies edema, Denies irregular heart rhythm, Denies claudication, Denies dyspnea, Denies dyspnea on exertion, Denies orthopnea, Denies paroxysmal nocturnal dyspnea and Denies slow heart rate Resp Denies cough, Denies dyspnea and Denies dyspnea on exertion GI Denies abdominal pain, Denies change in bowel habits, Denies excessive flatus, Denies nausea and Denies vomiting Denies urinary hesitancy, Denies urinary incontinence and Denies urinary urgency Musc Denies abnormal gait, Denies atrophy, Denies deformity and Denies limited range of motion Skin/Breast Denies bleeding lesions, Denies changing lesions and Denies rash Neuro Denies abnormal gait, Denies behavioral changes and Denies lack of coordination Psych Denies behavioral changes Physical exam (Primary Care) Vital Signs: Last Vital Signs BP 128/68 07/07/23 15:22 BMI result Body Mass Index 30.2 Tobacco/Smoking Status: Tobacco use Status Tobacco use date assessed 07/07/23 07/07/23 15:30 Patient Tobacco Use Status Former Tobacco user 07/07/23 15:30 e-Cigarette/Vaping Use Never Used 07/07/23 15:30 PHQ-9: PHQ-9 Score PHQ-9: Total score 0 07/07/23 15:37 Depression Screening Interpretation: Negative Thrive Assessment: Date of Thrive Assessment Date Thrive assessed 07/07/23 07/07/23 15:30 Currently or been in a relationship where the following occur: no concerns reported [facility] Head: Yes normal to inspection, Yes normocephalic and Yes atraumatic Ears: external ears normal, TM normal on the right and TM abnormal dull General nose exam: Normal external nose present and No nasal discharge present Face and sinus: Yes sinuses nontender Mouth: lip normal Eyes General: appearance normal, both eyes and all related structures Eyelids: Yes eyelids normal Conjunctivae: conjunctivae normal Resp Effort & Inspection: normal respiratory effort Auscultation: clear to auscultation bilaterally Cardio Jugular venous distension: no JVD Rate: regular rate Rhythm: regular rhythm Heart sounds: S1 normal heart sound present and S2 normal heart sound present Extrem General: Yes full ROM Assessment and Plan Assessment & Plan (1) Hypertension: Code(s): I10 - Essential (primary) hypertension Qualifiers: Hypertension type: primary hypertension Qualified Code(s): I10 - Essential (primary) hypertension Plan: Continue amlodipine. Blood pressure goal is equal or less than 130/80. (2) MDD (major depressive disorder): Code(s): F32.9 - Major depressive disorder, single episode, unspecified Qualifiers: Major depression recurrence: recurrent Active/Remission status: currently active Major depression episode severity: mild Qualified Code(s): F33.0 - Major depressive disorder, recurrent, mild Plan: Continue sertraline. (3) Otalgia of left ear: Code(s): H92.02 - Otalgia, left ear Plan: Start Murine ear drops. Start amoxicillin. (4) GERD (gastroesophageal reflux disease): Code(s): K21.9 - Gastro-esophageal reflux disease without esophagitis Qualifiers: Esophagitis presence: without esophagitis Qualified Code(s): K21.9 - Gastro-esophageal reflux disease without esophagitis Plan: Continue low acid diet. Medications: New carbamide peroxide 6.5% (Murine Ear) 5 drps otic (ear) left DAILY 4 days 15 mL 0RF amoxicillin 500 mg PO BID 7 days 14 tabs 0RF Coding Level of Care Code Est Pt Level 4 (72747) Diagnoses Primary hypertension I10 Hypertension type: primary hypertension Mild episode of recurrent major depressive disorder F33.0 Major depression recurrence: recurrent Active/Remission status: currently active Major depression episode severity: mild Otalgia of left ear H92.02 Gastroesophageal reflux disease without esophagitis K21.9 Esophagitis presence: without esophagitis Additional Codes VANESSA-7 Assessment Billing - VANESSA-7 Assessment Tool: VANESSA-7 Assessment 16713 ([id number]) Time Spent (min) 21
[2023-07-07 15:22] VITALS: BP 128/68; BMI 30.2
== END 2023-07-07 15:41 | disposition home or self-care (01) ==
PROVIDERS: PCP Physician Assistant; Visit Provider Internal Medicine
DX: I10 Essential (primary) hypertension (principal); F33.0 Major depressive disorder, recurrent, mild; H92.02 Otalgia, left ear; K21.9 Gastro-esophageal reflux disease without esophagitis
CPT/HCPCS: 99214

== ENCOUNTER 2023-10-11 09:24 | Outpatient (AMB) | payer OTHER, SELFPAY ==
[2023-10-11 09:27] VITALS: BP 120/72; PULSE 74; O2SAT 97; BMI 30.7
--- NOTE | 2023-10-11 09:27 | A.OFFPC_ITS ---
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 Required: No Allergies No Known Allergies Allergy (Verified 10/11/23 09:38) Medication List - Last Reconciled 10/11/23 by Melvin Coreas PA-C amlodipine 5 mg PO DAILY amoxicillin 500 mg PO BID 7 days blood pressure test kit-large As directed carbamide peroxide 6.5% (Murine Ear) 5 drps otic (ear) left DAILY 4 days diclofenac sodium 50 mg PO DAILY 10 days ibuprofen 800 mg PO Q8H PRN 7 days meclizine 25 mg PO TID PRN 10 days sertraline (Zoloft) 50 mg PO DAILY 90 days Tobacco use date assessed: 10/11/23 Dental Screening Dental Screen Date: 07/07/23 HPI f/u HTN HPI Details Patient is a 53 year-old male here today for a follow-up visit. ? Patient has a past medical history significant hypertension, major depressive disorder obstructive sleep apnea. .. Concern--> has been experiencing left lower extremity tingling and discomfort worse at night while lying down. He reports it disrupts his sleep. Also has noted worsening vertigo since a vacationing. He reports taking a plane and was in high elevations which had bothered his ears. He reports getting vertigo symptoms associated with changes in his head movements and lying down. Has use meclizine which has been helpful. PLAN: Will set him up with vestibular therapy to do Sohail maneuvers. Will supply patient with antihistamine to reduce fluid in the middle ear. Hypertension:? Blood pressure has been acceptable in office.? Continues on amlodipine 5 mg without any side effects. Major depressive disorder:?? Reports his depression has been well controlled with current SSRI therapy. Reports his father had this past summer. He is doing okay though grieving. ? Denies any SI or HI .He does report his family members have told him he appears to be less stressed. . Obstructive sleep apnea: Recently had sleep study showing obstructive sleep apnea and has been started on CPAP machine, followed by pulmonology. He reports a bit more energy during the daytime since starting CPAP nightly COUNTS INCLUDE 234 BEDS AT THE [facility] Medical History Bleeding hemorrhoids Lumbar paraspinal muscle spasm Hypertension Vertigo Physical exam Surgical History History of hemorrhoidectomy (2018) History of rectal sphincterotomy (12/03/19) History of eye surgery Family History Mother Hypertension Father Alzheimer disease Paternal Uncle Colon polyps Sister Lupus Social History Housing: House Alcohol intake: current Alcohol intake frequency: a few times a month Alcohol type: beer Patient Tobacco Use Status: Former Tobacco user e-Cigarette/Vaping Use: Never Used Second Hand Smoke Exposure: No service: No Current occupational status: employed 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 1. Little interest or pleasure in doing things: not at all 2. Feeling down, depressed, or hopeless: not at all 3. Trouble falling or staying asleep, or sleeping too much: not at all 4. Feeling tired or having little energy: not at all 5. Poor appetite or overeating: not at all 6. Feeling bad about yourself - or that you are a failure or have let yourself or your family down: not at all 7. Trouble concentrating on things, such as reading the newspaper or watching television: not at all 8. Moving or speaking so slowly that other people could have noticed. Or the opposite - being so fidgety or restless that you have been moving around a lot more than usual: not at all 9. Thoughts that you would be better off or of hurting yourself in some way: not at all Total score: 0 Depression Screening Interpretation: Negative Depression Screening Done: Yes 44543 - PHQ-9 Billing: Yes Source: Developed by Drs. Jagdish Escalante, Katia Alarcon, Uriel Zuñiga and colleagues, with an educational hemant from [employer]. Thrive Questionnaire Date Thrive assessed: 10/11/23 I am a: Patient What is your living situation today?: I have a steady place to live Within the past 12 months, did the food you bought not last and you didn't have the money to get more?: Never true Within the past 12 months, did you worry whether your food would run out before you got money to buy more?: Never true Do you have trouble paying for medicines?: No Do you have trouble getting transportation to medical appointments?: No Do you have trouble paying your heating and electricity bill?: No Do you have trouble taking care of your child, family member or friend?: No Do you have trouble with day-to-day activities such as bathing, preparing meals, shopping, managing finances, etc.?: No Are you currently unemployed and looking for a job?: No Are you interested in more education?: No Please select the resources that you would like help with: None Currently or been in a relationship where the following occur: no concerns reported THRIVE Score: 0 AUDIT C Alcohol Use Questionnaire (AUDIT-C) 1. How often do you have a drink containing alcohol?: Never 3. How often do you have six or more drinks on one occasion?: Never Total Score: 0 VANESSA-7 AMB Questionnaire VANESSA-7 Date VANESSA - 7 assessed: 07/07/23 Source: Developed by Drs. Jagdish Escalante, Katia Alarcon, Uriel Zuñiga and colleagues, with an educational hemant from [employer]. Review of Systems Const Denies headache(s) Eyes Denies loss of vision ENT Reports vertigo, Denies dizziness, Denies headache(s) and Denies sore throat Card Denies chest pain, Denies leg edema and Denies lightheadedness Resp Denies cough, Denies hemoptysis and Denies wheezing GI Denies abdominal pain, Denies melena, Denies constipation, Denies diarrhea and Denies vomiting Denies dysuria, Denies urinary frequency and Denies urinary urgency Musc Details: + restless leg symptoms Denies arthralgias, Denies joint swelling, Denies numbness and Denies tingling Neuro Denies Abnormal speech present, Denies behavioral changes, Reports vertigo, Denies dizziness, Denies headache(s), Denies loss of vision, Denies memory loss, Denies numbness and Denies tingling Psych Denies anxiety, Denies behavioral changes, Denies depression, Denies memory loss and Denies panic attacks Zenon/Lymph Denies easy bleeding and Denies easy bruising Aller/Immun Denies wheezing Physical exam (Primary Care) Vital Signs: Last Vital Signs Pulse 74 10/11/23 09:27 BP 120/72 10/11/23 09:27 Pulse Ox 97 10/11/23 09:27 Oxygen Delivery Method Room Air 10/11/23 09:27 BMI result Body Mass Index 30.7 Tobacco/Smoking Status: Tobacco use Status Tobacco use date assessed 10/11/23 10/11/23 09:28 Patient Tobacco Use Status Former Tobacco user 10/11/23 09:28 e-Cigarette/Vaping Use Never Used 10/11/23 09:28 Depression Screening Interpretation: Negative Thrive Assessment: Date of Thrive Assessment Date Thrive assessed 10/11/23 10/11/23 09:28 Currently or been in a relationship where the following occur: no concerns reported Const General: healthy appearing, no acute distress, alert and awake Nutritional Appearance: well nourished Orientation/consciousness: oriented to person, oriented to place and oriented to time HENMT Ears: TM's normal bilaterally General nose exam: Normal nasal mucous membranes and turbinates present Eyes Conjunctivae: conjunctivae normal Sclerae: sclerae normal Pupils: Equal, round and reactive pupils present Neck Neck: Yes no lymphadenopathy and Yes no JVD Thyroid: Thyroid normal Carotids: no bruits Resp Effort & Inspection: normal respiratory effort and not tachypneic Auscultation: no crackles, no rales, no rhonchi and no wheezes Cardio Rate: regular rate Rhythm: regular rhythm Heart sounds: no murmurs and normal S1 and S2 GI Palpation (GI): Soft to palpation, nontender, no hepatomegaly and no splenomegaly Auscultation: normal bowel sounds Skin General skin exam: no rashes or lesions noted and dry skin Neuro General: oriented to person, oriented to place and oriented to time Cranial nerves: Yes Equal, round and reactive pupils present Speech: No Abnormal speech present Gait exam (Neuro): Normal gait present Motor exam (neuro): no tremor noted Extrem Right upper extremity: full ROM Left upper extremity: full ROM Right lower extremity: full ROM; no edema Left lower extremity: full ROM; no edema Psych Mental Status: mental status grossly normal Speech and movement: Normal speech and movement present Affect: normal affect Attitude: cooperative Thought process: Normal thought process present Assessment and Plan Assessment & Plan (1) Hypertension: Code(s): I10 - Essential (primary) hypertension Qualifiers: Hypertension type: primary hypertension Qualified Code(s): I10 - Essential (primary) hypertension Plan: Patient's blood pressure acceptable today in office. Will continue his current dose of amlodipine with goal blood pressure be below 140/90 (2) LUCY (obstructive sleep apnea): Comment: THIS GENTLEMAN HAS MODERATELY SEVERE OBSTRUCTIVE SLEEP APNEA. THE UNDERLYING ETIOLOGY IS. 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 HE IS USING CPAP REGULARLY AND BENEFITING. COMPLIANCE IS GOOD. HE IS ENCOURAGED TO KEEP ON USING IT EVERY NIGHT. AT LEAST FOR 6 HOURS WILL RECHECK HIM IN SIX MONTHS. Code(s): G47.33 - Obstructive sleep apnea (adult) (pediatric) Plan: Has been compliant with use of CPAP on a nightly basis. (3) MDD (major depressive disorder): Code(s): F32.9 - Major depressive disorder, single episode, unspecified Qualifiers: Major depression recurrence: recurrent Active/Remission status: currently active Major depression episode severity: mild Qualified Code(s): F33.0 - Major depressive disorder, recurrent, mild Plan: Patient's depression reported as stable. Continues on Zoloft 50 mg daily with good effect. Otherwise denies any SI or HI (4) Obese: Code(s): E66.9 - Obesity, unspecified Qualifiers: Obesity type: due to excess calories Obesity classification: adult class 1 (BMI 30 - 34.9) Serious obesity comorbidity presence: with serious comorbidity Body mass index: BMI 30.0-30.9 Qualified Code(s): E66.09 - Other obesity due to excess calories; Z68.30 - Body mass index [BMI] 30.0-30.9, adult Plan: Noted weight gain since last office visit. Does understand his BMI is over 30 will work on being more physically active and adapting to better eating habits to reduce his weight (5) Borderline high cholesterol: Code(s): E78.9 - Disorder of lipoprotein metabolism, unspecified Plan: Most recent lipid panel showing high total cholesterol. Will continue to work on lifestyle and dietary modifications to controlled cholesterol. (6) Restless leg syndrome: Code(s): G25.81 - Restless legs syndrome Plan: Patient's signs and symptoms of leg discomfort at night most consistent with restless leg syndrome. Will supply patient with 0.5 mg ropinirole to use at night to help reduce like discomfort at night. (7) Vertigo: Code(s): R42 - Dizziness and giddiness Plan: Patient experiencing worsening more frequent vertigo symptoms. Will supply patient with antihistamine. Advised vestibular therapy and patient agrees. Orders: Orders Lipid Panel Today E78.9 - Disorder of lipoprotein metabolism, unspecified Prostate Specific Antigen Scr Today I10 - Essential (primary) hypertension, Z12.5 - Encounter for screening for malignant neoplasm of prostate Comprehensive [place]. Panel Fast Today I10 - Essential (primary) hypertension Complete Blood Count no Diff Today I10 - Essential (primary) hypertension PT Evaluation and Treatment Today R42 - Dizziness and giddiness Medications: New ropinirole administer 1-3 hours before bedtime 0.5 mg PO BEDTIME 30 days 30 tabs 3RF G25.81 - Restless legs syndrome loratadine 10 mg PO DAILY 90 days 90 tabs 1RF H92.02 - Otalgia, left ear Refilled amlodipine 5 mg PO DAILY 90 tabs 2RF I10 - Essential (primary) hypertension ibuprofen 800 mg PO Q8H 7 days PRN 21 tabs 0RF pain K62.89 - Other specified diseases of anus and rectum sertraline (Zoloft) 50 mg PO DAILY 90 days 90 tabs 3RF F33.0 - Major depressive disorder, recurrent, mild Discontinued amoxicillin Discontinued Reason: Doctor's Order 500 mg PO BID 7 days 14 tabs 0RF Patient Instructions: Goal: Maintain blood pressure below 140/90 Barriers: Monitoring blood pressure, busy work on lifestyle Coding Level of Care Code Est Pt Level 4 (85978) Diagnoses Primary hypertension I10 Hypertension type: primary hypertension LUCY (obstructive sleep apnea) G47.33 Mild episode of recurrent major depressive disorder F33.0 Major depression recurrence: recurrent Active/Remission status: currently active Major depression episode severity: mild Class 1 obesity due to excess calories with serious comorbidity and body mass index (BMI) of 30.0 to 30.9 in adult E66.09; Z68.30 Obesity type: due to excess calories Obesity classification: adult class 1 (BMI 30 - 34.9) Serious obesity comorbidity presence: with serious comorbidity Body mass index: BMI 30.0-30.9 Borderline high cholesterol E78.9 Restless leg syndrome G25.81 Vertigo R42
== END 2023-10-11 09:54 | disposition home or self-care (01) ==
PROVIDERS: PCP Physician Assistant; Visit Provider Physician Assistant
DX: I10 Essential (primary) hypertension (principal); G47.33 Obstructive sleep apnea (adult) (pediatric); F33.0 Major depressive disorder, recurrent, mild; E66.09 Other obesity due to excess calories; Z68.30 Body mass index [BMI] 30.0-30.9, adult; E78.9 Disorder of lipoprotein metabolism, unspecified; G25.81 Restless legs syndrome; R42 Dizziness and giddiness
CPT/HCPCS: 99214

== ENCOUNTER 2023-10-26 12:42 | Outpatient (RCR) | payer OTHER, SELFPAY ==
[2023-10-26 13:05] VITALS: BP 139/85; PULSE 73
--- NOTE | 2023-10-26 14:48 | MHC.PT.EP ---
[facility] [place] Office [place] Office [place] Office [address] Miguel [place] [address] [phone] F: [phone] F: [phone] F: [phone] F: [phone] Physical Therapy Plan of Care Date of Evaluation: 10/26/23 Date of Surgery: Diagnosis: VERTIGO () Assessment: Italo is a 53 y/o M referred to PT with diagnosis of vertigo. he presents with difficulty walking, rolling in bed and bending down then standing back up. He describes dizziness as 'the room-spins', he denies vomiting/nausea. Symptoms occur for aprox one minute but sometimes longer. He associates the dizziness with rolling in bed, looking down and turning head. Examination shows normal oculomotor tests, mild hypofunction with head turns (-) VBI B, grossly WFL cervical AROM, normal static balance (mild sway with eyes closed in narrow MASON), and (-) B halpike and roll testing with no appreciable nystagmus. He was treated with VOR activities and would benefit from PT 1x/wk for 4wks to address impairments, implement HEP and optimize functional mobility. Frequency and Duration: The patient will be seen 1 X WEEK X 4 WEEKS Short Term Goals: Initiate HEP and promote self management of symptoms Civil Design Technician Goals: 1. Patient will negotiate community obstacles such as curbs, ramps and open spaces without LOB for a minimum of 1000 feet. 2. Patient will demonstrate functional movement in all planes and directions without provocation of dizziness to show return to PLOF. Treatment Plan: Modalities to reduce pain, spasms and effusion. Manual therapy to restore motion and function. Therapeutic exercise to improve strength and flexibility. Neuromuscular re-education for posture and balance. Therapeutic activities to return to functional activities of daily living. Electronically signed by: Agatha Castellanos PT DPT Please sign and return to therapist. Thank you for your referral.
--- NOTE | 2023-11-24 13:14 | MHC.PT.DC ---
[facility] [place] Office [place] Office [place] Office [address] Miguel [place] [address] [phone] F: [phone] F: [phone] F: [phone] F: [phone] Physical Therapy Discharge Report Diagnosis: VERTIGO (KP) Date of Surgery: Date of Evaluation: 10/26/23 Date of Discharge: 11/24/23 Treatments to Date: 1 Cancellations to Date: 0 No Shows to Date: 0 Discharge Status: Patient Elected to Stop Visit Non-compliance Discharge Summary: Upon eval on 10/26/23 assessment states Italo is a 53 y/o M referred to PT with diagnosis of vertigo. he presents with difficulty walking, rolling in bed and bending down then standing back up. He describes dizziness as 'the room-spins', he denies vomiting/nausea. Symptoms occur for aprox one minute but sometimes longer. He associates the dizziness with rolling in bed, looking down and turning head. Examination shows normal oculomotor tests, mild hypofunction with head turns (-) VBI B, grossly WFL cervical AROM, normal static balance (mild sway with eyes closed in narrow MASON), and (-) B halpike and roll testing with no appreciable nystagmus. He was treated with VOR activities and would benefit from PT 1x/wk for 4wks to address impairments, implement HEP and optimize functional mobility. Unfortunately, he no showed for his next scheduled appointments and attempts to reach by phone were unsucessful. Current status is unknown. Electronically signed by: Agatha Castellanos PT DPT Please sign and return to therapist. Thank you for your referral.
== END 2023-11-24 13:14 | disposition home or self-care (01) ==
LOC: HO.PT 12:42
PROVIDERS: PCP Physician Assistant; Visit Provider Physician Assistant
DX: R42 Dizziness and giddiness (principal)
CPT/HCPCS: 97112; 97161

== ENCOUNTER 2024-04-16 09:50 | Outpatient (REF) | payer OTHER, SELFPAY ==
[2024-04-16 11:33] LABS: Hemoglobin 14.2 g/dl (14.0-18.0); Mean Corpuscular HGB Conc 34.6 g/dl (31.0-36.0); Mean Corpuscular Hemoglobin 32.2 pg (27.0-33.0); Mean Platelet Volume 10.9 fL (9.4-12.4); Platelet Count 181 X10*3/uL (160-400); Red Blood Count 4.41 X10*6/uL (4.60-5.80); Red Cell Distribution Width 12.6 % (11.0-16.0); White Blood Count 5.1 X10*3/uL (4.8-10.8)
[2024-04-16 12:39] LABS: Prostate Specific Antigen Scr 2.01 ng/mL (<0.05-4.0)
[2024-04-16 12:53] LABS: Alanine Aminotransferase 66 U/L (0-40); Albumin Level 4.3 g/dL (3.5-5.0); Alkaline Phosphatase 72 U/L (39-117); Anion Gap 10 (12-20); Aspartate Amino Transferase 54 U/L (5-37); Bilirubin Total 0.7 mg/dL (0.0-1.0); Blood Urea Nitrogen 11 mg/dL (9-16); Calcium 9.6 mg/dL (8.4-10.2); Carbon Dioxide 29 mmol/L (22-29); Chloride 105 mmol/L (96-108); Cholesterol 198 mg/dL (<200); Estimated Glomerular Filt Rate > 60; Glucose Fasting 101 mg/dL (60-99); HDL Cholesterol 43 mg/dL (>40); LDL Cholesterol Calculated 110 mg/dL (<100); Potassium 3.9 mmol/L (3.3-5.1); Sodium 140 mmol/L (135-145); Total Protein 8.3 g/dL (6.5-8.0); Triglycerides 227 mg/dL (<150)
== END 2024-04-16 09:51 | disposition home or self-care (01) ==
LOC: HO.LAB 09:50
PROVIDERS: PCP Physician Assistant; Visit Provider Physician Assistant
DX: I10 Essential (primary) hypertension (principal); E78.9 Disorder of lipoprotein metabolism, unspecified; Z12.5 Encounter for screening for malignant neoplasm of prostate
CPT/HCPCS: 36415; 80053; 80061; 84153; 85027

== ENCOUNTER 2024-04-17 11:18 | Outpatient (AMB) | payer OTHER, SELFPAY ==
--- NOTE | 2024-04-17 11:29 | MHC.PC.OV ---
Vital Signs 04/17/24 11:30 Height 5 ft 7 in Weight 197 lb 4 oz BMI 30.9 BP 148/94 H Blood Pressure Location Lt brachial Position Sitting Pulse 82 Pulse Source Pulse Oximeter Pulse Oximetry (%) 95 Oxygen Delivery Method Room Air Intake Visit Reasons: PE Intake Note: Patient is here today for a physical. Line Up Examiner Required: No Accompanied by: Self / Same As Patient Allergies No Known Allergies Allergy (Verified 04/17/24 11:55) Medication List - Last Reconciled 04/17/24 by Melvin Coreas PA-C amlodipine 5 mg PO DAILY blood pressure test kit-large As directed carbamide peroxide 6.5% (Murine Ear) 5 drps otic (ear) left DAILY 4 days diclofenac sodium 50 mg PO DAILY 10 days ibuprofen 800 mg PO Q8H PRN 7 days loratadine 10 mg PO DAILY 90 days meclizine 25 mg PO TID PRN 10 days ropinirole 0.5 mg PO BEDTIME 30 days sertraline (Zoloft) 50 mg PO DAILY 90 days Tobacco use date assessed: 10/11/23 Dental Screening Dental Screen Date: 07/07/23 HPI PE HPI Details Patient is a 53 year-old male here today for a routine annual physical. ? Patient has a past medical history significant hypertension, major depressive disorder obstructive sleep apnea. .. Concern-->reports having left lower lumbar spine pain over last 4 weeks . no trauma to his lower back reported . Has been using ibuprofen though has not been effective on reducing his pain. He denies any urinary issues. Hypertension:? Blood pressure slightly elevated today in office, he reports he has not taken his blood pressure medication today. H.? Continues on amlodipine 5 mg without any side effects. Major depressive disorder:?? Reports his depression has been well controlled with current SSRI therapy. ? Denies any SI or HI .He does report his family members have told him he appears to be less stressed. . Obstructive sleep apnea: Recently had sleep study showing obstructive sleep apnea and has been started on CPAP machine, followed by pulmonology. He reports a bit more energy during the daytime since starting CPAP nightly. Colonoscopy: Done [place] [address] Rosen, repeat 10 years .. Vaccines: Up-to-date with COVID vaccine, tetanus vaccine and shingles vaccine, UTD PCV-20, declines flu vaccine today Laboratory Tests 04/16/24 10:31 RBC 4.41 L Hgb 14.2 Creatinine 0.77 Fasting Glucose 101 H AST 54 H ALT 66 H LDL Cholesterol, C alc 110 H PSA Screen 2.01 [facility] Medical History Bleeding hemorrhoids Lumbar paraspinal muscle spasm Hypertension Vertigo Physical exam Surgical History History of hemorrhoidectomy (2018) History of rectal sphincterotomy (12/03/19) History of eye surgery Family History Mother Hypertension Father Alzheimer disease Paternal Uncle Colon polyps Sister Lupus Social History (Updated 04/17/24 @ 11:58 by Melvin Coreas PA-C) Housing: House Alcohol intake: current Alcohol intake frequency: a few times a month Alcohol type: beer Patient Tobacco Use Status: Former Tobacco user e-Cigarette/Vaping Use: Never Used Second Hand Smoke Exposure: No service: No Current occupational status: employed 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 1. Little interest or pleasure in doing things: not at all 2. Feeling down, depressed, or hopeless: several days 3. Trouble falling or staying asleep, or sleeping too much: not at all 4. Feeling tired or having little energy: not at all 5. Poor appetite or overeating: not at all 6. Feeling bad about yourself - or that you are a failure or have let yourself or your family down: not at all 7. Trouble concentrating on things, such as reading the newspaper or watching television: not at all 8. Moving or speaking so slowly that other people could have noticed. Or the opposite - being so fidgety or restless that you have been moving around a lot more than usual: not at all 9. Thoughts that you would be better off or of hurting yourself in some way: not at all Total score: 1 Depression Screening Interpretation: Negative Depression Screening Done: Yes 44939 - PHQ-9 Billing: Yes Source: Developed by Drs. Jagdish Escalante, Katia Alarcon, Uriel Zuñiga and colleagues, with an educational hemant from [employer]. Thrive Questionnaire Date Thrive assessed: 04/17/24 I am a: Patient What is your living situation today?: I have a steady place to live Within the past 12 months, did the food you bought not last and you didn't have the money to get more?: Never true Within the past 12 months, did you worry whether your food would run out before you got money to buy more?: Never true Do you have trouble paying for medicines?: No Do you have trouble getting transportation to medical appointments?: No Do you have trouble paying your heating and electricity bill?: No Do you have trouble taking care of your child, family member or friend?: No Do you have trouble with day-to-day activities such as bathing, preparing meals, shopping, managing finances, etc.?: No Are you currently unemployed and looking for a job?: Yes Are you interested in more education?: No Please select the resources that you would like help with: None Currently or been in a relationship where the following occur: No concerns reported THRIVE Score: 0 AUDIT C Alcohol Use Questionnaire (AUDIT-C) 1. How often do you have a drink containing alcohol?: 2-4 times a month 2. How many drinks containing alcohol do you have on a typical day when you are drinking?: 7 to 9 3. How often do you have six or more drinks on one occasion?: Monthly Total Score: 7 VANESSA-7 AMB Questionnaire VANESSA-7 Date VANESSA - 7 assessed: 04/17/24 Feeling nervous, anxious, or on edge: 0 = Not at all Not being able to stop or control worryin = Several days Worrying too much about different things: 1 = Several days Trouble relaxin = Several days Being so restless that it is hard to sit still: 1 = Several days Becoming easily annoyed or irritable: 1 = Several days Feeling afraid as if something awful might happen: 0 = Not at all Total VANESSA-7 score (0-4 normal; 5-9 mild; 10-14 moderate; 15-21 severe): 5 Source: Developed by Drs. Jagdish Escalante, Uriel Kellyoenke and colleagues, with an educational hemant from [employer]. VANESSA-7 Assessment Billing VANESSA-7 Assessment Tool: VANESSA-7 Assessment 74350 Review of Systems Const Denies body aches, Denies chills, Denies excessive sweating, Denies fatigue, Denies fever(s) and Denies headache(s) Eyes Denies blurry vision ENT Denies dysphagia, Denies vertigo, Denies dizziness, Denies headache(s), Denies hearing loss and Denies tinnitus Card Denies chest pain, Denies chest pain with activity, Denies syncope, Denies irregular heart rhythm and Denies dyspnea Resp Denies chest congestion, Denies cough, Denies hemoptysis, Denies dyspnea and Denies wheezing GI Denies abdominal pain, Denies melena, Denies hematochezia, Denies coffee ground emesis, Denies dysphagia, Denies diarrhea, Denies nausea and Denies vomiting Denies difficulty urinating, Denies dysuria, Denies urinary frequency, Denies urinary hesitancy and Denies urinary urgency Musc Denies arthralgias, Denies limited range of motion, Denies muscle cramps and Denies muscle weakness Skin/Breast Denies rash and Denies skin ulcer Neuro Denies Abnormal speech present, Denies confusion, Denies vertigo, Denies dizziness, Denies syncope, Denies headache(s), Denies memory loss and Denies seizure-like activity Psych Denies anxiety, Denies confusion, Denies depression, Denies memory loss, Denies panic attacks and Denies paranoia Endo Denies excessive sweating, Denies fatigue, Denies flushing, Denies polydipsia and Denies polyuria Aller/Immun Denies wheezing Physical exam (Primary Care) Vital Signs: Last Vital Signs Pulse 82 04/17/24 11:30 BP 148/94 H 04/17/24 11:30 Pulse Ox 95 04/17/24 11:30 Oxygen Delivery Method Room Air 04/17/24 11:30 BMI result Body Mass Index 30.9 Tobacco/Smoking Status: Tobacco use Status Tobacco use date assessed 10/11/23 04/17/24 11:30 Patient Tobacco Use Status Former Tobacco user 04/17/24 11:30 e-Cigarette/Vaping Use Never Used 04/17/24 11:30 PHQ-9: PHQ-9 Score PHQ-9: Total score 1 04/17/24 11:30 Depression Screening Interpretation: Negative Thrive Assessment: Date of Thrive Assessment Date Thrive assessed 04/17/24 04/17/24 11:30 Currently or been in a relationship where the following occur: No concerns reported Const General: cooperative, comfortable, no acute distress, alert and awake; No confusion Orientation/consciousness: oriented to person, oriented to place, patient oriented x3 and No confusion HENMT Head: Yes normocephalic Ears: external ears normal and TM's normal bilaterally Face and sinus: No sinus tenderness Mouth: Normal oral and palatal mucosa present and tongue normal Teeth and gingiva: dentition normal and gingiva normal Throat: Yes posterior oropharynx normal, Yes tonsils normal and Yes uvula midline Eyes Conjunctivae: conjunctivae normal Sclerae: sclerae normal Pupils: Equal, round and reactive pupils present EOM: EOMs intact bilaterally Direct Ophthalmoscopy: No no photophobia Neck Neck: Yes no lymphadenopathy, No tender and Yes no JVD Thyroid: Thyroid normal Carotids: no bruits Chest Chest palpation & inspection: no tenderness Resp Effort & Inspection: normal respiratory effort, no audible wheezes, not labored and no stridor Auscultation: no crackles, no rales, no rhonchi and no wheezes Cardio Jugular venous distension: no JVD Rate: regular rate, not bradycardic and not tachycardic Rhythm: regular rhythm Bruits: no carotid bruits Peripheral pulses: Peripheral pulses 2+ throughout GI Inspection: Yes normal to inspection, No abdominal wall ecchymosis and No visible herniation Palpation (GI): Soft to palpation, nontender, no guarding, not rigid and No hepatosplenomegaly present Auscultation: normoactive bowel sounds General: Yes no CVA tenderness Back/Spine/Pelvis Back: no CVA tenderness and No back tenderness Cervical Spine: cervical ROM normal Thoracic/Lumbar Spine: thoracic and lumbar spine normal to inspection, straight leg raise negative bilaterally, No thoraco-lumbar ROM limited and No lumbar spinal tenderness Skin Lesions: no lesions Rashes: no rashes Wounds: no wounds Neuro General: oriented to person, oriented to place, patient oriented x3, CN's II-XI intact bilaterally and No confusion Cranial nerves: Yes Equal, round and reactive pupils present and Yes Normal accommodation reflex present Cognition (Neuro): normal cognition Speech: No Abnormal speech present Gait exam (Neuro): Normal gait present Motor exam (neuro): 5/5 motor strength present throughout Extrem Right upper extremity: full ROM; no cyanosis Left upper extremity: full ROM; no cyanosis Right lower extremity: no edema Left lower extremity: no edema Psych Appearance: grossly normal Mental Status: mental status grossly normal Affect: normal affect Attitude: cooperative Thought process: Normal thought process present Office Procedures Flu Questionnaire Does the patient have a severe egg allergy?: No Immunizations Fluarix Triv [id number] (PF) 45 mcg (15 mcg x 3)/0.5 mL IM syringe Performing Provider: Melvin Coraes PA-C Performing Location: [facility] Documented (not given) by: VERONICA Simmons on 04/17/24 11:34 Reason Not Given: Patient Refused Coding Level of Care Code Est Pt Prev Care 40-64y(81506) Diagnoses Annual physical exam Z00.00 Lumbar back pain M54.50 Primary hypertension I10 Hypertension type: primary hypertension Mild episode of recurrent major depressive disorder F33.0 Major depression recurrence: recurrent Active/Remission status: currently active Major depression episode severity: mild Borderline high cholesterol E78.9 Additional Codes VANESSA-7 Assessment Billing - VANESSA-7 Assessment Tool: VANESSA-7 Assessment 60404 ([id number]) Assessment & Plan Assessment & Plan (1) Annual physical exam: Code(s): Z00.00 - Encounter for general adult medical examination without abnormal findings Category: Medical Plan: As per HPI (2) Lumbar back pain: Code(s): M54.50 - Low back pain, unspecified Category: Medical Plan: Patient reports a month history of lower left lumbar spine pain. He denies any trauma to his lower back. Has used ibuprofen though has not been effective. He denies any radicular symptoms. We did discuss perhaps doing physical therapy though he declines. Will try a muscle relaxer (3) Hypertension: Code(s): I10 - Essential (primary) hypertension Category: Medical Qualifiers: Hypertension type: primary hypertension Qualified Code(s): I10 - Essential (primary) hypertension Plan: Patient's blood pressure slightly elevated today in office. He reports he did not take his medication this morning. He promises to start monitoring his blood pressure at home. Goal blood pressures to be below 140/90 (4) MDD (major depressive disorder): Code(s): F32.9 - Major depressive disorder, single episode, unspecified Category: Medical Qualifiers: Major depression recurrence: recurrent Active/Remission status: currently active Major depression episode severity: mild Qualified Code(s): F33.0 - Major depressive disorder, recurrent, mild Plan: Patient reports his depression has been much better. He continues on sertraline 50 mg with good effect. (5) Borderline high cholesterol: Code(s): E78.9 - Disorder of lipoprotein metabolism, unspecified Category: Medical Plan: Patient's most recent lipid panel showing excellent control of his total cholesterol and LDL. Will continue to work on lifestyle and dietary modifications Orders: Orders Complete Blood Count no Diff 6 Months K21.9 - Gastro-esophageal reflux disease without esophagitis Lipid Panel 6 Months E78.9 - Disorder of lipoprotein metabolism, unspecified Prostate Specific Antigen Scr 6 Months E78.9 - Disorder of lipoprotein metabolism, unspecified, Z12.5 - Encounter for screening for malignant neoplasm of prostate Influenza [id number] Immunization Today Z23 - Encounter for immunization Microalbumin, Random (w Creat) 6 Months I10 - Essential (primary) hypertension [facility]. Panel Fast 6 Months I10 - Essential (primary) hypertension Medications: New cyclobenzaprine 10 mg PO BEDTIME 14 days 14 tabs 0RF M54.50 - Low back pain, unspecified Refilled blood pressure test kit-large As directed 1 ea 0RF I10 - Essential (primary) hypertension Patient Instructions: Goal: Blood pressure to be below 140/90 Barriers: Adherence to physical activity and healthy eating habits
[2024-04-17 11:30] VITALS: BP 148/94; PULSE 82; O2SAT 95; BMI 30.9
== END 2024-04-17 12:12 | disposition home or self-care (01) ==
PROVIDERS: PCP Physician Assistant; Visit Provider Physician Assistant
DX: Z00.00 Encounter for general adult medical examination without abnormal findings (principal); M54.50 Low back pain, unspecified; I10 Essential (primary) hypertension; F33.0 Major depressive disorder, recurrent, mild; E78.9 Disorder of lipoprotein metabolism, unspecified; Z23 Encounter for immunization

== ENCOUNTER → 2024-04-17 11:18 | Outpatient (BNVA) | payer OTHER, SELFPAY | PROVIDERS: PCP Physician Assistant; Visit Provider Physician Assistant | DX: Z00.01 Encounter for general adult medical examination with abnormal findings (principal); M54.50 Low back pain, unspecified; I10 Essential (primary) hypertension; E78.9 Disorder of lipoprotein metabolism, unspecified; F33.0 Major depressive disorder, recurrent, mild; Z79.899 Other long term (current) drug therapy | CPT/HCPCS: 90471; 96127 ==

== ENCOUNTER 2024-10-10 10:15 | Outpatient (REF) | payer OTHER, SELFPAY ==
[2024-10-10 10:47] LABS: Hematocrit 41.6 % (42.0-52.0); Hemoglobin 14.6 g/dl (14.0-18.0); Mean Corpuscular HGB Conc 35.1 g/dl (31.0-36.0); Mean Corpuscular Hemoglobin 32.9 pg (27.0-33.0); Mean Corpuscular Volume 93.7 fL (80.0-98.0); Mean Platelet Volume 10.5 fL (9.4-12.4); Platelet Count 179 X10*3/uL (160-400); Red Blood Count 4.44 X10*6/uL (4.60-5.80); Red Cell Distribution Width 12.7 % (11.0-16.0); White Blood Count 4.4 X10*3/uL (4.8-10.8)
[2024-10-10 11:24] LABS: Alanine Aminotransferase 72 U/L (0-40); Albumin Level 4.3 g/dL (3.5-5.0); Alkaline Phosphatase 75 U/L (39-117); Anion Gap 10 (12-20); Aspartate Amino Transferase 60 U/L (5-37); Bilirubin Total 0.6 mg/dL (0.0-1.0); Blood Urea Nitrogen 11 mg/dL (9-16); Calcium 9.3 mg/dL (8.4-10.2); Carbon Dioxide 25 mmol/L (22-29); Chloride 108 mmol/L (96-108); Cholesterol 191 mg/dL (<200); Estimated Glomerular Filt Rate > 60; Glucose Fasting 91 mg/dL (60-99); HDL Cholesterol 50 mg/dL (>40); LDL Cholesterol Calculated 124 mg/dL (<100); Potassium 3.9 mmol/L (3.3-5.1); Sodium 139 mmol/L (135-145); Triglycerides 89 mg/dL (<150)
[2024-10-10 11:26] LABS: Prostate Specific Antigen Scr 2.46 ng/mL (<0.05-4.0)
--- OUTSIDE RECORDS SUMMARY | 2024-10-10 11:54 | XMS_ITS | Clinical Summary ---
Author Organization [facility] ity Address [address] [place] [address] Care Team Providers Care Cigarette Stamper Name Role Phone Unavailable Primary Care Provider Unavailabl e Social History Tobacco Use Types Packs/Day Years Used Date Smoking Tobacco: Never Smokeless Tobacco: Never Sex and Gender Information Value Date Recorded Sex Assigned at Not on file Legal Sex Male 3:17 PM EST Gender Identity Not on file Sexual Orientation Not on file Obstetrics History Plan of Treatment Health Maintenance Due Date Last Done Comments DTaP,Tdap,and Td Vaccines (1 - Tdap) 1988 Hepatitis B Vaccines (1 of 3 - 19+ 3-dose series) 1988 Pneumococcal Vaccine: 50+ Ye ars (1 of 1 - PCV) 2019 Zoster Vaccines (1 of 2) 2019 COVID-19 Vaccine ( - 2023-2 5 season) 2024 Influenza Vaccine (Season Ended) 2025 HIB Vaccines Aged Out No longer eligi ble based on patient's age to complete this topic HPV Vaccines Aged Out No longer eligi ble based on patient's age to complete this topic Hepatitis A Vaccines Aged Out No long er eligible based on patient's age to complete this topic IPV Vaccines Aged Out No longer eligi ble based on patient's age to complete this topic MMR Vaccines Aged Out No longer eligi ble based on patient's age to complete this topic Meningococcal ACWY Vaccine Aged Out N o longer eligible based on patient's age to complete this topic Meningococcal B Vaccine Aged Out No l onger eligible based on patient's age to complete this topic Pneumococcal Vaccine: Pediat rics (0 to 5 Years) and At-Risk Patients (6 to 64 Years) Aged Out No longer eligible b ased on patient's age to complete this topic RSV Immunization Patients Un jr 20 months Aged Out No longer eligible b ased on patient's age to complete this topic Varicella Vaccines Aged Out No longer eligible based on patient's age to complete this topic
== END 2024-10-10 10:16 | disposition home or self-care (01) ==
LOC: HO.LAB 10:15
PROVIDERS: PCP Physician Assistant; Visit Provider Physician Assistant
DX: K21.9 Gastro-esophageal reflux disease without esophagitis (principal); E78.9 Disorder of lipoprotein metabolism, unspecified; Z12.5 Encounter for screening for malignant neoplasm of prostate; I10 Essential (primary) hypertension
CPT/HCPCS: 36415; 80053; 80061; 84153; 85027

== ENCOUNTER 2024-10-15 11:05 | Outpatient (REF) | payer OTHER, SELFPAY ==
--- OUTSIDE RECORDS SUMMARY | 2024-10-15 11:10 | XMS_ITS | Clinical Summary ---
Author Organization [facility] ity Address [address] [place] [address] Care Team Providers Care Textile Converter Name Role Phone Unavailable Primary Care Provider [...]
[2024-10-15 11:48] LABS: Creatinine Urine 131.58 mg/dL; Microalbum/Creatinine Ratio Ur 37.9 ug/mg cr (<30)
== END 2024-10-15 11:06 | disposition home or self-care (01) ==
LOC: HO.LNP 11:05
PROVIDERS: Visit Provider Physician Assistant
DX: I10 Essential (primary) hypertension (principal)
CPT/HCPCS: 82043; 82570

== ENCOUNTER 2024-10-16 10:50 | Outpatient (AMB) | payer OTHER, SELFPAY ==
--- NOTE | 2024-10-16 10:53 | A.OFFPC_ITS ---
Vital Signs 10/16/24 10:55 Height 5 ft 7 in Weight 196 lb 8 oz BMI 30.8 BP 144/88 H Blood Pressure Location Lt brachial Position Sitting Pulse 70 Pulse Source Pulse Oximeter Temp 97.3 F Temp Source Temporal Artery Scan Pulse Oximetry (%) 96 Oxygen Delivery Method Room Air Intake Visit Reasons: f/u htn/hld Electrical Design Engineer Required: No Accompanied by: Self / Same As Patient Allergies No Known Allergies Allergy (Verified 10/16/24 11:07) Medication List - Last Reconciled 10/16/24 by Melvin Coreas PA-C amlodipine 5 mg PO DAILY blood pressure test kit-large As directed carbamide peroxide 6.5% (Murine Ear) 5 drps otic (ear) left DAILY 4 days cyclobenzaprine 10 mg PO BEDTIME 14 days diclofenac sodium 50 mg PO DAILY 10 days ibuprofen 800 mg PO Q8H PRN 7 days loratadine 10 mg PO DAILY 90 days meclizine 25 mg PO TID PRN 10 days ropinirole 0.5 mg PO BEDTIME 30 days sertraline (Zoloft) 50 mg PO DAILY 90 days Tobacco use date assessed: 10/16/24 Dental Screening Dental Screen Date: 10/16/24 Did you have a dental visit in the last 12 months?: Yes Did you have a dental problem in the last 6 months where you did not have access to dental care?: No Was dental information given to patient?: Patient has dentist HPI f/u htn/hld HPI Details Patient is a 54 year-old male here today for a a follow-up visit ? Patient has a past medical history significant hypertension, major depressive disorder obstructive sleep apnea. Chronic low back pain: reports having left lower lumbar spine pain over the last several months . no trauma to his lower back reported . Has been using ibuprofen though has not been effective on reducing his pain. He denies any urinary issues. Lately he has been experiencing left lower extremity radiculopathy Hypertension:? Blood pressure slightly elevated today in office, he reports he has not taken his blood pressure medication today. He does report being under lot of stress as of late due to employment concerns. .? Continues on amlodipine 5 mg without any side effects. Have noted microalbuminuria most recent labs. PLAN: Will add on losartan 25 mg Major depressive disorder:?? Reports his depression has been well controlled with current SSRI therapy. ? Denies any SI or HI .He does report his family members have told him he appears to be less stressed. . Obstructive sleep apnea: Recently had sleep study showing obstructive sleep apnea and has been started on CPAP machine. He is followed by [facility] Management of obstructive sleep apnea through CPAP has been unsuccessful due to equipment discomfort, fostering interest in alternate interventions. He is interested in implantable device to help him with his obstructive sleep apnea Laboratory Tests 10/04/22 04/16/24 10/10/24 09:49 10:31 10:23 RBC 4.44 L Hgb 14.6 Fasting Glucose 101 H 91 AST 60 H ALT 72 H Cholesterol 198 191 LDL Cholesterol, C alc 110 H 124 H PSA Screen 2.46 Urine Microalbumin 27.0 10/15/24 10:07 RBC Hgb Fasting Glucose AST ALT Cholesterol LDL Cholesterol, C alc PSA Screen Urine Microalbumin 50.0 PFSH Medical History Bleeding hemorrhoids Lumbar paraspinal muscle spasm Hypertension Vertigo Physical exam Surgical History History of hemorrhoidectomy (2018) History of rectal sphincterotomy (12/03/19) History of eye surgery Family History Mother Hypertension Father Alzheimer disease Paternal Uncle Colon polyps Sister Lupus Social History Housing: House Alcohol intake: current Alcohol intake frequency: a few times a month Alcohol type: beer Patient Tobacco Use Status: Former Tobacco user e-Cigarette/Vaping Use: Never Used Second Hand Smoke Exposure: No service: No Current occupational status: employed 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 1. Little interest or pleasure in doing things: not at all 2. Feeling down, depressed, or hopeless: not at all 3. Trouble falling or staying asleep, or sleeping too much: not at all 4. Feeling tired or having little energy: not at all 5. Poor appetite or overeating: not at all 6. Feeling bad about yourself - or that you are a failure or have let yourself or your family down: not at all 7. Trouble concentrating on things, such as reading the newspaper or watching television: not at all 8. Moving or speaking so slowly that other people could have noticed. Or the opposite - being so fidgety or restless that you have been moving around a lot more than usual: not at all 9. Thoughts that you would be better off or of hurting yourself in some way: not at all Total score: 0 Depression Screening Interpretation: Negative Depression Screening Done: Yes 91170 - PHQ-9 Billing: Yes Source: Developed by Drs. Jagdish Escalante, Katia Alarcon, Uriel Zuñiga and colleagues, with an educational hemant from [employer]. Thrive Questionnaire Date Thrive assessed: 10/16/24 I am a: Patient What is your living situation today?: I have a steady place to live Within the past 12 months, did the food you bought not last and you didn't have the money to get more?: Never true Within the past 12 months, did you worry whether your food would run out before you got money to buy more?: Never true Do you have trouble paying for medicines?: No Do you have trouble getting transportation to medical appointments?: No Do you have trouble paying your heating and electricity bill?: No Do you have trouble taking care of your child, family member or friend?: No Do you have trouble with day-to-day activities such as bathing, preparing meals, shopping, managing finances, etc.?: No Are you currently unemployed and looking for a job?: Yes Are you interested in more education?: No Please select the resources that you would like help with: None Currently or been in a relationship where the following occur: No concerns reported THRIVE Score: 0 AUDIT C Alcohol Use Questionnaire (AUDIT-C) 1. How often do you have a drink containing alcohol?: 2-4 times a month 2. How many drinks containing alcohol do you have on a typical day when you are drinking?: 7 to 9 3. How often do you have six or more drinks on one occasion?: Weekly Total Score: 8 VANESSA-7 AMB Questionnaire VANESSA-7 Date VANESSA - 7 assessed: 10/16/24 Feeling nervous, anxious, or on edge: 0 = Not at all Not being able to stop or control worryin = Several days Worrying too much about different things: 1 = Several days Trouble relaxin = Several days Being so restless that it is hard to sit still: 1 = Several days Becoming easily annoyed or irritable: 1 = Several days Feeling afraid as if something awful might happen: 0 = Not at all Total VANESSA-7 score (0-4 normal; 5-9 mild; 10-14 moderate; 15-21 severe): 5 Source: Developed by Drs. Jagdish Escalante, Katia Alarcon, Uriel Zuñiga and colleagues, with an educational hemant from [employer]. VANESSA-7 Assessment Billing VANESSA-7 Assessment Tool: VANESSA-7 Assessment 17477 Review of Systems Const Denies headache(s) Eyes Denies loss of vision ENT Denies vertigo, Denies dizziness, Denies headache(s) and Denies sore throat Card Denies chest pain, Denies leg edema and Denies lightheadedness Resp Denies cough, Denies hemoptysis and Denies wheezing GI Denies abdominal pain, Denies melena, Denies constipation, Denies diarrhea and Denies vomiting Denies dysuria, Denies urinary frequency and Denies urinary urgency Musc Reports back pain, Denies arthralgias, Denies joint swelling, Denies numbness and Denies tingling Neuro Denies Abnormal speech present, Denies behavioral changes, Denies vertigo, Denies dizziness, Denies headache(s), Denies loss of vision, Denies memory loss, Denies numbness and Denies tingling Psych Denies anxiety, Denies behavioral changes, Denies depression, Denies memory loss and Denies panic attacks Zenon/Lymph Denies easy bleeding and Denies easy bruising Aller/Immun Denies wheezing Physical exam (Primary Care) Vital Signs: Last Vital Signs Temp 97.3 F 10/16/24 10:55 Pulse 70 10/16/24 10:55 BP 144/88 H 10/16/24 10:55 Pulse Ox 96 10/16/24 10:55 Oxygen Delivery Method Room Air 10/16/24 10:55 BMI result Body Mass Index 30.8 BMI Assessment/Plan discussion: High BMI High, discussed plan: lifestyle, weight reduction, dietary and physical activity Tobacco/Smoking Status: Tobacco use Status Tobacco use date assessed 10/16/24 10/16/24 10:58 Patient Tobacco Use Status Former Tobacco user 10/16/24 10:58 e-Cigarette/Vaping Use Never Used 10/16/24 10:58 PHQ-9: PHQ-9 Score PHQ-9: Total score 0 10/16/24 10:58 Depression Screening Interpretation: Negative Thrive Assessment: Date of Thrive Assessment Date Thrive assessed 10/16/24 10/16/24 10:58 Currently or been in a relationship where the following occur: No concerns reported Const General: healthy appearing, no acute distress, alert and awake Nutritional Appearance: well nourished Orientation/consciousness: oriented to person, oriented to place and oriented to time HENMT Ears: TM's normal bilaterally General nose exam: Normal nasal mucous membranes and turbinates present Eyes Conjunctivae: conjunctivae normal Sclerae: sclerae normal Pupils: Equal, round and reactive pupils present Neck Neck: Yes no lymphadenopathy and Yes no JVD Thyroid: Thyroid normal Carotids: no bruits Resp Effort & Inspection: normal respiratory effort and not tachypneic Auscultation: no crackles, no rales, no rhonchi and no wheezes Cardio Rate: regular rate Rhythm: regular rhythm Heart sounds: no murmurs and normal S1 and S2 GI Palpation (GI): Soft to palpation, nontender, no hepatomegaly and no splenomegaly Auscultation: normal bowel sounds Skin General skin exam: no rashes or lesions noted and dry skin Neuro General: oriented to person, oriented to place and oriented to time Cranial nerves: Yes Equal, round and reactive pupils present Speech: No Abnormal speech present Gait exam (Neuro): Normal gait present Motor exam (neuro): no tremor noted Extrem Right upper extremity: full ROM Left upper extremity: full ROM Right lower extremity: full ROM; no edema Left lower extremity: full ROM; no edema Psych Mental Status: mental status grossly normal Speech and movement: Normal speech and movement present Affect: normal affect Attitude: cooperative Thought process: Normal thought process present Coding Level of Care Code Est Pt Level 4 (82638) Diagnoses Primary hypertension I10 Hypertension type: primary hypertension Lumbar back pain M54.50 Borderline high cholesterol E78.9 LUCY (obstructive sleep apnea) G47.33 Microalbuminuria R80.9 Additional Codes VANESSA-7 Assessment Billing - VANESSA-7 Assessment Tool: VANESSA-7 Assessment 95396 ([id number]) PHQ-9 - 05018 - PHQ-9 Billing: Yes ([id number]) Assessment & Plan Assessment & Plan (1) Hypertension: Code(s): I10 - Essential (primary) hypertension Category: Medical Qualifiers: Hypertension type: primary hypertension Qualified Code(s): I10 - Essential (primary) hypertension Plan: Patient's blood pressure slightly elevated today in office. Noted microalbuminuria. Will start losartan 25 mg for better blood pressure control and some renal protection. Will follow up in 3 months and evaluate him a urine microalbumin He promises to start monitoring his blood pressure at home. Goal blood pressures to be below 140/90 (2) Lumbar back pain: Code(s): M54.50 - Low back pain, unspecified Category: Medical Plan: Patient reports a month history of lower left lumbar spine pain. Does report more recently he has lower back pain has been radiating down his left lower extremity. Concerns here for a lumbar spine disc issue. Will send for x-ray and pain management referral to offer a pain reduction modality (3) Borderline high cholesterol: Code(s): E78.9 - Disorder of lipoprotein metabolism, unspecified Category: Medical Plan: Patient's most recent lipid panel showing excellent control of his total cholesterol and LDL. Will continue to work on lifestyle and dietary modifications (4) LUCY (obstructive sleep apnea): Comment: THIS GENTLEMAN HAS MODERATELY SEVERE OBSTRUCTIVE SLEEP APNEA. THE UNDERLYING ETIOLOGY IS. 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 HE IS USING CPAP REGULARLY AND BENEFITING. COMPLIANCE IS GOOD. HE IS ENCOURAGED TO KEEP ON USING IT EVERY NIGHT. AT LEAST FOR 6 HOURS WILL RECHECK HIM IN SIX MONTHS. Code(s): G47.33 - Obstructive sleep apnea (adult) (pediatric) Category: Medical Plan: Continues to follow up pulmonology. Discuss potential surgical intervention options with a specialist due to CPAP difficulties; consider the Enspire device to enhance sleep quality. (5) Microalbuminuria: Code(s): R80.9 - Proteinuria, unspecified Category: Medical Plan: Noted worsening microalbuminuria. Will add on losartan 25 mg for better blood pressure control and renal protection. Goal blood pressures to be below 140/90 Orders: Orders XR lumbar spine 4V min Today M54.50 - Low back pain, unspecified Microalbumin, Random (w Creat) Today I10 - Essential (primary) hypertension Comprehensive [place]. Panel Fast Today I10 - Essential (primary) hypertension Referrals Plastic Surgery Referral G47.33 - Obstructive sleep apnea (adult) (pediatric) Pain Management Referral M54.50 - Low back pain, unspecified Medications: New losartan 25 mg PO DAILY 90 days 90 tabs 1RF I10 - Essential (primary) hypertension Patient Instructions: Goal: Blood pressure to be below 140/90 Barrier: Adherence to physical activity and healthy eating habits
[2024-10-16 10:55] VITALS: BP 144/88; PULSE 70; TEMP 36.3; O2SAT 96; BMI 30.8
--- OUTSIDE RECORDS SUMMARY | 2024-10-16 12:52 | XMS_ITS | Clinical Summary ---
Author Organization [facility] Address [address] [place] [address] Care Team Providers Care Forensics Analyst Name Role Phone Unavailable Primary Care Provider [...]
== END 2024-10-16 11:26 | disposition home or self-care (01) ==
LOC: HO.HMCH 10:51
PROVIDERS: PCP Physician Assistant; Visit Provider Physician Assistant
DX: I10 Essential (primary) hypertension (principal); M54.50 Low back pain, unspecified; E78.9 Disorder of lipoprotein metabolism, unspecified; G47.33 Obstructive sleep apnea (adult) (pediatric); R80.9 Proteinuria, unspecified

== ENCOUNTER → 2024-10-16 10:50 | Outpatient (BNVA) | payer OTHER, SELFPAY | PROVIDERS: PCP Physician Assistant; Visit Provider Physician Assistant | DX: I10 Essential (primary) hypertension (principal); M54.50 Low back pain, unspecified; E78.9 Disorder of lipoprotein metabolism, unspecified; G47.33 Obstructive sleep apnea (adult) (pediatric); R80.9 Proteinuria, unspecified; F32.A Depression, unspecified; Z79.899 Other long term (current) drug therapy; Z99.89 Dependence on other enabling machines and devices | CPT/HCPCS: 96127 ==

== ENCOUNTER 2024-11-05 10:04 | Outpatient (REF) | payer OTHER, SELFPAY ==
--- NOTE | ~2024-11-05 | XR_ITS ---
EXAMINATION: X-ray lumbar spine CLINICAL INFORMATION: Low back pain, unspecified. TECHNIQUE: AP oblique and lateral views. COMPARISON: None FINDINGS: Left-sided rudimentary rib, L1 vertebra. Multilevel marginal osteophyte formation and endplate sclerosis at L3-4 and to a lesser extent L5-S1. Grade 1 retrolisthesis L3-4. Facet joint hypertrophy at L5-S1. No acute cortical disruption. No lytic or blastic lesions. Endplate sclerosis involving the lower thoracic spine. XR/XR lumbar spine 4V min IMPRESSION: Spondylosis L3-4 and resulting in grade 1 retrolisthesis. Electronically signed by: Bud Garcia MD 11/05/2024 11:34 AM EDT
--- OUTSIDE RECORDS SUMMARY | 2024-11-05 10:30 | XMS_ITS | Clinical Summary ---
[facility] Organization [facility] [address] [place] [address] Care Team Providers Care Resource Technician Name Role Phone Unavailable Primary Care Provider [...]
[2024-11-05 11:01] LABS: Alanine Aminotransferase 91 U/L (0-40); Albumin Level 4.5 g/dL (3.5-5.0); Alkaline Phosphatase 71 U/L (39-117); Anion Gap 12 (12-20); Aspartate Amino Transferase 98 U/L (5-37); Bilirubin Total 0.6 mg/dL (0.0-1.0); Blood Urea Nitrogen 10 mg/dL (9-16); Calcium 9.1 mg/dL (8.4-10.2); Carbon Dioxide 27 mmol/L (22-29); Chloride 106 mmol/L (96-108); Estimated Glomerular Filt Rate > 60; Glucose Fasting 113 mg/dL (60-99); Potassium 4.2 mmol/L (3.3-5.1); Sodium 141 mmol/L (135-145); Total Protein 8.9 g/dL (6.5-8.0)
[2024-11-05 11:24] LABS: Creatinine Urine 313.49 mg/dL; Microalbum/Creatinine Ratio Ur 130.1 ug/mg cr (<30)
== END 2024-11-05 10:05 | disposition home or self-care (01) ==
LOC: HO.LAB 10:04
PROVIDERS: PCP Physician Assistant; Visit Provider Physician Assistant
DX: I10 Essential (primary) hypertension (principal); M54.50 Low back pain, unspecified
CPT/HCPCS: 36415; 72110; 80053; 82043; 82570

== ENCOUNTER → 2024-11-05 10:19 | Outpatient (BNV) | payer OTHER, SELFPAY | PROVIDERS: PCP Physician Assistant; Visit Provider Radiology Diagnostic Radiology | DX: M54.50 Low back pain, unspecified (principal) | CPT/HCPCS: 72110 ==

== ENCOUNTER 2024-11-07 09:50 | Outpatient (AMB) | payer OTHER, SELFPAY ==
--- NOTE | 2024-11-07 09:58 | A.OFFVIS_ITS ---
Vital Signs 11/07/24 10:08 Weight 195 lb 6 oz BP 154/91 H Blood Pressure Location Rt brachial Position Sitting Pulse Oximetry (%) 96 Oxygen Delivery Method Room Air Intake Visit Reasons: Low back pain, unspecified Independent Agent Music Education Required: No Allergies No Known Allergies Allergy (Verified 11/07/24 10:10) Medication List - Last Reconciled 11/07/24 by Mariah Blair, GRIEVANCE COORDINATOR amlodipine 5 mg PO DAILY blood pressure test kit-large As directed carbamide peroxide 6.5% (Murine Ear) 5 drps otic (ear) left DAILY 4 days cyclobenzaprine 10 mg PO BEDTIME 14 days diclofenac sodium 50 mg PO DAILY 10 days ibuprofen 800 mg PO Q8H PRN 7 days loratadine 10 mg PO DAILY 90 days losartan 25 mg PO DAILY 90 days meclizine 25 mg PO TID PRN 10 days ropinirole 0.5 mg PO BEDTIME 30 days sertraline (Zoloft) 50 mg PO DAILY 90 days HPI Comments Details: Italo is very pleasant 54 years old gentleman who presents in my office with complains on axial back pain with minimal radiation into bilateral lower extremities. He reports that pain started 1 year ago. He thinks that the lifting of his children is a cause of his pain. He reports that sitting and walking aggravate his pain. Flexing forward makes his pain very severe. He is unable to sleep normally not because of his pain. He can do activities of bryant ly living he can take care of himself, he can function normally. 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 He is self mobile he reports that movements aggravate his pain. Location of the heat makes his pain better. The pain is most severe in the morning and at night. In terms of tissue he reports his pain as stabbing, pinching, cramping, sore sensation. He had an x-ray of the lumbar spine results of which dictated as below. He had physical therapy 1 year ago, he continues home exercise program he reports minimal improvement from physical therapy and home exercise. He never had any injections. [facility] Medical History Bleeding hemorrhoids Lumbar paraspinal muscle spasm Hypertension Vertigo Physical exam Surgical History History of hemorrhoidectomy (2018) History of rectal sphincterotomy (12/03/19) History of eye surgery Family History Mother Hypertension Father Alzheimer disease Paternal Uncle Colon polyps Sister Lupus Social History Housing: House Alcohol intake: current Alcohol intake frequency: a few times a month Alcohol type: beer Patient Tobacco Use Status: Former Tobacco user e-Cigarette/Vaping Use: Never Used Second Hand Smoke Exposure: No service: No Current occupational status: employed 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 Current occupational exposures/hazards: No Cognitive needs: No Hearing needs: No Vision needs: Yes (glasses) Review of Systems Const All systems reviewed & are unremarkable except as noted in HPI and below ENT Reports Normal hearing present Neuro Reports Normal hearing present, Denies Abnormal speech present, Denies confusion and Denies Sensory deficit (Neuro) Psych Denies confusion Physical Exam Vital Signs: Last Vital Signs BP 154/91 H 11/07/24 10:08 Pulse Ox 96 11/07/24 10:08 Oxygen Delivery Method Room Air 11/07/24 10:08 Const General: no acute distress; No confusion Orientation/consciousness: patient oriented x3 and No confusion Eyes General: appearance normal, both eyes and all related structures Pupils: Equal, round and reactive pupils present EOM: EOMs intact bilaterally Neck Neck: Yes full ROM Chest Chest palpation & inspection: normal inspection of the chest Resp Effort & Inspection: normal respiratory effort, able to speak in complete sentences, normal respiratory pattern, no audible wheezes and no cough Cardio Jugular venous distension: no JVD GI Inspection: Yes normal to inspection Back/Spine/Pelvis Other: Able to stand on bilateral tiptoes in bilateral heels without difficulty. Walking is not compromised. Gait is stable and within normal limits. Flexing forward aggravate his pain. Flexing backwards does not aggravate his pain. Tenderness on palpation in paraspinal spinal region most lower portion of the lumbar spine. Valsalva maneuver does not aggravate the pain. SLR is negative bilaterally. Mark test is negative bilaterally. Gaenslen test is negative bilaterally. Neuro General: patient oriented x3, gait normal and No confusion Cranial nerves: Yes CN's II-XII intact bilaterally, Yes Equal, round and reactive pupils present, Yes Normal hearing present and Yes Ability to bilaterally elevate shoulders present Speech: No Abnormal speech present Gait exam (Neuro): Normal gait present Motor exam (neuro): 5/5 motor strength present throughout Sensory Exam: No Sensory deficit (Neuro) Extrem General: No pedal edema Psych Speech and movement: Normal speech and movement present Affect: normal affect Attitude: cooperative Thought process: Normal thought process present Thought content: Normal thought content present Insight: Good insight present (Psych) Judgement: Good judgement present (Psych) Results Reviewed Results Reviewed: X-ray lumbar spine 11/05/2024 CLINICAL INFORMATION: Low back pain, unspecified. FINDINGS: Left-sided rudimentary rib, L1 vertebra. Multilevel marginal osteophyte formation and endplate sclerosis at L3-4 and to a lesser extent L5-S1. Grade 1 retrolisthesis L3-4. Facet joint hypertrophy at L5-S1. No acute cortical disruption. No lytic or blastic lesions. Endplate sclerosis involving the lower thoracic spine. Spondylosis L3-4 and resulting in grade 1 retrolisthesis. Assessment & Plan Assessment & Plan (1) Vertebrogenic pain syndrome: Code(s): M54.89 - Other dorsalgia Category: Medical (2) Vertebrogenic low back pain: Code(s): M54.51 - Vertebrogenic low back pain Category: Medical (3) Chronic pain syndrome: Code(s): G89.4 - Chronic pain syndrome Category: Medical Plan I suspect this patient is having vertebra genic pain syndrome and therefore I need to send him for the MRI of the lumbar spine. As soon as he will complete the MRI he will give us a call and schedule appointment with me. On his x-ray there are sclerotic changes in the lower lumbar vertebra endplates. I will schedule him for intercept procedure if there are Modic 1 and Modic 2 changes. Orders: Orders MR lumbar spine wo con Today G89.4 - Chronic pain syndrome, M54.51 - Vertebrogenic low back pain, M54.89 - Other dorsalgia Patient Instructions: I here by testify that I spent 45 minutes in conversation with this patient evaluating his prior records and prior diagnostic images planning his care and organizing this note. Coding Level of Care Code New Pt Level 4 (39012) Diagnoses Vertebrogenic pain syndrome M54.89 Vertebrogenic low back pain M54.51 Chronic pain syndrome G89.4
[2024-11-07 10:08] VITALS: BP 154/91; O2SAT 96
--- OUTSIDE RECORDS SUMMARY | 2024-11-07 10:35 | XMS_ITS | Clinical Summary ---
Author Organization [facility] Address [address] [place] [address] Care Team Providers Care Rail Manager Name Role Phone Unavailable Primary Care Provider [...]
== END 2024-11-07 10:23 | disposition home or self-care (01) ==
LOC: HO.PMC 09:50
PROVIDERS: PCP Physician Assistant; Referring Provider Physician Assistant; Visit Provider Anesthesiology
DX: M54.89 Other dorsalgia (principal); G89.4 Chronic pain syndrome
CPT/HCPCS: 99204

== ENCOUNTER 2024-11-11 18:28 | Outpatient (REF) | payer OTHER, SELFPAY ==
--- NOTE | ~2024-11-11 | MR_ITS ---
EXAMINATION: MR LUMBAR SPINE WITHOUT CONTRAST CLINICAL INFORMATION: Chronic pain syndrome. COMPARISON: None available. TECHNIQUE: MRI of the lumbar spine was obtained using routine sequences without contrast. FINDINGS: Last rib-bearing vertebra labeled T12. No bone marrow STIR signal abnormality. Multilevel marginal osteophyte formation decreased intervertebral disc height and signal from L1-2 to L5-S1 more pronounced at L3-4 and L5-S1 levels. There is normal alignment. The conus medullaris ends at pedicle of L1 with normal signal. T12-L1: No herniated disc. No neuroforamina stenosis. L1-2: No herniated disc. No neuroforamina stenosis. L2-3: Broad-based disc bulging. Facet joint hypertrophy. No disc herniation. No neuroforamina stenosis. L3-4: There is a broad-based left central subarticular and foraminal disc herniation abutting the left L4 and left L3 nerve roots. L4-5: Broad-based disc bulging. Bilateral facet joint hypertrophy. Bilateral neuroforamina narrowing. There is likely encroachment on the exiting nerve roots. L5-S1: Broad-based disc bulging abutting the S1 nerve roots on the lateral recesses. Facet joint hypertrophy. Bilateral neuroforamina narrowing encroaching the L5 exiting nerve roots. Bone marrow inhomogeneity involving mostly the bony pelvis and sacrum. No prevertebral compartment hematoma, mass or fluid collection. MR/MR lumbar spine wo con IMPRESSION: Multilevel lumbar spondylosis resulting in and bilateral neuroforamina stenosis on the left L3-4 bilateral L5-S1 and L4-5 levels encroaching the exiting nerve roots on the lateral recesses and neuroforamina. Electronically signed by: Bud Garcia MD 11/12/2024 09:27 AM EDT
--- OUTSIDE RECORDS SUMMARY | 2024-11-11 18:30 | XMS_ITS | Clinical Summary ---
[facility] Organization [facility] Address [address] [place] [address] Care Team Providers Care Vice President Quality Improvement Name Role Phone Unavailable Primary Care Provider [...]
== END 2024-11-11 18:29 | disposition home or self-care (01) ==
LOC: HO.MRI 18:28
PROVIDERS: PCP Physician Assistant; Visit Provider Anesthesiology
DX: M54.51 Vertebrogenic low back pain (principal); G89.4 Chronic pain syndrome
CPT/HCPCS: 72148

== ENCOUNTER → 2024-11-11 18:31 | Outpatient (BNV) | payer OTHER, SELFPAY | PROVIDERS: PCP Physician Assistant; Visit Provider Radiology Diagnostic Radiology | DX: M99.63 Osseous and subluxation stenosis of intervertebral foramina of lumbar region (principal) | CPT/HCPCS: 72148 ==

== ENCOUNTER 2025-01-22 10:16 | Outpatient (AMB) | payer OTHER, SELFPAY ==
--- NOTE | 2025-01-22 10:40 | A.OFFPC_ITS ---
Vital Signs 01/22/25 10:41 Height 5 ft 7 in Weight 193 lb 4 oz BMI 30.3 BP 136/62 Blood Pressure Location Lt brachial Position Sitting Pulse 74 Pulse Source Pulse Oximeter Temp 97.1 F Temp Source Temporal Artery Scan Pulse Oximetry (%) 94 Oxygen Delivery Method Room Air Intake Visit Reasons: f/u Intake Note: Patient is here to follow up on Chronic pain, RLS, LUCY, HTN. Woodwind Instruments Inspector Required: No Parquetry Layer: Not Required per policy Accompanied by: Self / Same As Patient Allergies No Known Allergies Allergy (Verified 01/22/25 11:11) Medication List - Last Reconciled 01/22/25 by Melvin Coreas PA-C amlodipine 5 mg PO DAILY blood pressure test kit-large As directed cyclobenzaprine 10 mg PO BEDTIME 14 days diclofenac sodium 50 mg PO DAILY 10 days ibuprofen 800 mg PO Q8H PRN 7 days loratadine 10 mg PO DAILY 90 days losartan 25 mg PO DAILY 90 days meclizine 25 mg PO TID PRN 10 days ropinirole 0.5 mg PO BEDTIME 30 days sertraline (Zoloft) 50 mg PO DAILY 90 days Tobacco use date assessed: 01/22/25 Dental Screening Dental Screen Date: 10/16/24 HPI f/u HPI Details Patient is a 54 year-old male here today for a a follow-up visit ? Patient has a past medical history significant hypertension, major depressive disorder obstructive sleep apnea. Concern--> The patient reports persistent earwax impaction, particularly in the right ear, which has been causing a sensation of fullness and hearing difficulties. He has been using [id number] products to manage the condition, with partial i mprovement. Hypertension:? Blood pressure acceptable today in office, we have added losartan to his blood pressure med regime, he reports he has not taken his blood pressure medication today. He does report being under lot of stress as of late due to employment concerns. Have noted microalbuminuria most recent labs. Major depressive disorder:?? Reports his depression has been well controlled with current SSRI therapy. ? Denies any SI or HI .He does report his family members have told him he appears to be less stressed. . Obstructive sleep apnea: Recently had sleep study showing obstructive sleep apnea and has been started on CPAP machine. He is followed by [facility] pul[facility] Management of obstructive sleep apnea through CPAP has been unsuccessful due to equipment discomfort, fostering interest in alternate interventions. He has been referred to Plastic Surgeons whom are working him up in evaluating for inspire device. Laboratory Tests 10/10/24 10/15/24 11/05/24 10:23 10:07 10:14 RBC 4.44 L Hgb 14.6 Fasting Glucose 113 H AST 98 H ALT 91 H Urine Microalbumin 50.0 11/05/24 10:18 RBC Hgb Fasting Glucose AST ALT Urine Microalbumin 408.0 PFSH Medical History Bleeding hemorrhoids Lumbar paraspinal muscle spasm Hypertension Vertigo Physical exam Surgical History History of hemorrhoidectomy (2018) History of rectal sphincterotomy (12/03/19) History of eye surgery Family History Mother Hypertension Father Alzheimer disease Paternal Uncle Colon polyps Sister Lupus Social History Housing: House Alcohol intake: current Alcohol intake frequency: a few times a month Alcohol type: beer Patient Tobacco Use Status: Former Tobacco user e-Cigarette/Vaping Use: Never Used Second Hand Smoke Exposure: Yes service: No Current occupational status: employed 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 1. Little interest or pleasure in doing things: not at all 2. Feeling down, depressed, or hopeless: not at all 3. Trouble falling or staying asleep, or sleeping too much: not at all 4. Feeling tired or having little energy: not at all 5. Poor appetite or overeating: not at all 6. Feeling bad about yourself - or that you are a failure or have let yourself or your family down: not at all 7. Trouble concentrating on things, such as reading the newspaper or watching television: not at all 8. Moving or speaking so slowly that other people could have noticed. Or the opposite - being so fidgety or restless that you have been moving around a lot more than usual: not at all 9. Thoughts that you would be better off or of hurting yourself in some way: not at all Total score: 0 Depression Screening Interpretation: Negative Depression Screening Done: Yes 57487 - PHQ-9 Billing: Yes Source: Developed by Drs. Jagdish Escalante, Katia Alarcon, Uriel Zuñiga and colleagues, with an educational hemant from [employer]. Thrive Questionnaire Date Thrive assessed: 01/15/25 I am a: Patient What is your living situation today?: I have a steady place to live Within the past 12 months, did the food you bought not last and you didn't have the money to get more?: Often true Within the past 12 months, did you worry whether your food would run out before you got money to buy more?: Often true Do you have trouble paying for medicines?: No Do you have trouble getting transportation to medical appointments?: No Do you have trouble paying your heating and electricity bill?: No Do you have trouble taking care of your child, family member or friend?: No Do you have trouble with day-to-day activities such as bathing, preparing meals, shopping, managing finances, etc.?: No Are you currently unemployed and looking for a job?: No Are you interested in more education?: No Please select the resources that you would like help with: None Currently or been in a relationship where the following occur: No concerns reported THRIVE Score: 2 AUDIT C Alcohol Use Questionnaire (AUDIT-C) 1. How often do you have a drink containing alcohol?: 2-4 times a month Total Score: 2 VANESSA-7 AMB Questionnaire VANESSA-7 Date VANESSA - 7 assessed: 01/22/25 Feeling nervous, anxious, or on edge: 0 = Not at all Not being able to stop or control worryin = Not at all Worrying too much about different things: 0 = Not at all Trouble relaxin = Not at all Being so restless that it is hard to sit still: 0 = Not at all Becoming easily annoyed or irritable: 0 = Not at all Feeling afraid as if something awful might happen: 0 = Not at all Total VANESSA-7 score (0-4 normal; 5-9 mild; 10-14 moderate; 15-21 severe): 0 Source: Developed by Drs. Jagdish Escalante, Katia Alarcon, Uriel Zuñiga and colleagues, with an educational hemant from [employer]. Review of Systems Const Denies headache(s) Eyes Denies loss of vision ENT Denies vertigo, Denies dizziness, Denies headache(s) and Denies sore throat Card Denies chest pain, Denies leg edema and Denies lightheadedness Resp Denies cough, Denies hemoptysis and Denies wheezing GI Denies abdominal pain, Denies melena, Denies constipation, Denies diarrhea and Denies vomiting Denies dysuria, Denies urinary frequency and Denies urinary urgency Musc Denies arthralgias, Denies joint swelling, Denies numbness and Denies tingling Neuro Denies Abnormal speech present, Denies behavioral changes, Denies vertigo, Denies dizziness, Denies headache(s), Denies loss of vision, Denies memory loss, Denies numbness and Denies tingling Psych Denies anxiety, Denies behavioral changes, Denies depression, Denies memory loss and Denies panic attacks Zenon/Lymph Denies easy bleeding and Denies easy bruising Aller/Immun Denies wheezing Physical exam (Primary Care) Vital Signs: Last Vital Signs Temp 97.1 F 01/22/25 10:41 Pulse 74 01/22/25 10:41 BP 136/62 01/22/25 10:41 Pulse Ox 94 01/22/25 10:41 Oxygen Delivery Method Room Air 01/22/25 10:41 BMI result Body Mass Index 30.3 Tobacco/Smoking Status: Tobacco use Status Tobacco use date assessed 01/22/25 01/22/25 10:50 Patient Tobacco Use Status Former Tobacco user 01/22/25 10:50 e-Cigarette/Vaping Use Never Used 01/22/25 10:50 PHQ-9: PHQ-9 Score PHQ-9: Total score 0 01/22/25 11:12 Depression Screening Interpretation: Negative Thrive Assessment: Date of Thrive Assessment Date Thrive assessed 01/15/25 01/22/25 10:50 Currently or been in a relationship where the following occur: No concerns reported Const General: healthy appearing, no acute distress, alert and awake Nutritional Appearance: well nourished Orientation/consciousness: oriented to person, oriented to place and oriented to time HENMT Ears: TM's normal bilaterally General nose exam: Normal nasal mucous membranes and turbinates present Eyes Conjunctivae: conjunctivae normal Sclerae: sclerae normal Pupils: Equal, round and reactive pupils present Neck Neck: Yes no lymphadenopathy and Yes no JVD Thyroid: Thyroid normal Carotids: no bruits Resp Effort & Inspection: normal respiratory effort and not tachypneic Auscultation: no crackles, no rales, no rhonchi and no wheezes Cardio Rate: regular rate Rhythm: regular rhythm Heart sounds: no murmurs and normal S1 and S2 GI Palpation (GI): Soft to palpation, nontender, no hepatomegaly and no splenomegaly Auscultation: normal bowel sounds Skin General skin exam: no rashes or lesions noted and dry skin Neuro General: oriented to person, oriented to place and oriented to time Cranial nerves: Yes Equal, round and reactive pupils present Speech: No Abnormal speech present Gait exam (Neuro): Normal gait present Motor exam (neuro): no tremor noted Extrem Right upper extremity: full ROM Left upper extremity: full ROM Right lower extremity: full ROM; no edema Left lower extremity: full ROM; no edema Psych Mental Status: mental status grossly normal Speech and movement: Normal speech and movement present Affect: normal affect Attitude: cooperative Thought process: Normal thought process present Coding Level of Care Code Est Pt Level 4 (69895) Diagnoses Primary hypertension I10 Hypertension type: primary hypertension Borderline high cholesterol E78.9 LUCY (obstructive sleep apnea) G47.33 Microalbuminuria R80.9 Right ear impacted cerumen H61.21 Additional Codes PHQ-9 - 37028 - PHQ-9 Billing: Yes ([id number]) Assessment & Plan Assessment & Plan (1) Hypertension: Code(s): I10 - Essential (primary) hypertension Category: Medical Qualifiers: Hypertension type: primary hypertension Qualified Code(s): I10 - Essential (primary) hypertension Plan: Patient's blood pressure acceptable today in office. Does have history of microalbuminuria. He does not regularly monitor his blood pressure at home. We have started losartan recently, Will recheck the microalbumin. Goal blood pressures to be below 140/90 (2) Borderline high cholesterol: Code(s): E78.9 - Disorder of lipoprotein metabolism, unspecified Category: Medical Plan: Patient's most recent lipid panel showing excellent control of his total cholesterol and LDL. Will continue to work on lifestyle and dietary modifications (3) LUCY (obstructive sleep apnea): Comment: THIS GENTLEMAN HAS MODERATELY SEVERE OBSTRUCTIVE SLEEP APNEA. THE UNDERLYING ETIOLOGY IS. 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 HE IS USING CPAP REGULARLY AND BENEFITING. COMPLIANCE IS GOOD. HE IS ENCOURAGED TO KEEP ON USING IT EVERY NIGHT. AT LEAST FOR 6 HOURS WILL RECHECK HIM IN SIX MONTHS. Code(s): G47.33 - Obstructive sleep apnea (adult) (pediatric) Category: Medical Plan: Continues to follow up pulmonology. He has followed up with plastic surgeon about trying a surgical intervention for his obstructive sleep apnea. (4) Microalbuminuria: Code(s): R80.9 - Proteinuria, unspecified Category: Medical Plan: Noted worsening microalbuminuria. We have added losartan. Advised to repeat microalbuminuria Goal blood pressures to be below 140/90 (5) Right ear impacted cerumen: Code(s): H61.21 - Impacted cerumen, right ear Category: Medical Plan: Was able to dislodge a large amount of cerumen from right ear. He reports feeling better. Orders: Orders Microalbumin, Random (w Creat) Today R80.9 - Proteinuria, unspecified Comprehensive [facility]. Panel Fast Today I10 - Essential (primary) hypertension Complete Blood Count no Diff Today I10 - Essential (primary) hypertension Lipid Panel Today E78.9 - Disorder of lipoprotein metabolism, unspecified Medications: Changed From ropinirole administer 1-3 hours before bedtime 0.5 mg PO BEDTIME 30 days 30 tabs 3RF G25.81 - Restless legs syndrome To ropinirole administer 1-3 hours before bedtime 0.5 mg PO BEDTIME 90 tabs 2RF 90 days G25.81 - Restless legs syndrome
[2025-01-22 10:41] VITALS: BP 136/62; PULSE 74; TEMP 36.2; O2SAT 94; BMI 30.3
--- OUTSIDE RECORDS SUMMARY | 2025-01-22 11:08 | XMS_ITS | Clinical Summary ---
Author Organization [facility] ity Address [address] [place] [address] Care Team Providers Care Bean Snipper Name Role Phone Unavailable Primary Care Provider [...] Health Maintenance Due Date Last Done Comments Hepatitis B Vaccines (1 of 3 - 19+ 3-dose series) 1988 Pneumococcal Vaccine: 50+ Ye ars (1 of 1 - PCV) 2019 Zoster Vaccines (1 of 2) 2019 DTaP,Tdap,and Td Vaccines (2 - Td or Tdap) 08/25/2021 08/26/2011 COVID-19 Vaccine ( - 2023-2 5 season) 2024 Depression Screening 06/27/2024 Influenza Vaccine (#1) 2025 HIB Vaccines Aged Out No longer [...]
== END 2025-01-22 11:31 | disposition home or self-care (01) ==
LOC: HO.HMCH 10:16
PROVIDERS: PCP Physician Assistant; Visit Provider Physician Assistant
DX: I10 Essential (primary) hypertension (principal); E78.9 Disorder of lipoprotein metabolism, unspecified; G47.33 Obstructive sleep apnea (adult) (pediatric); R80.9 Proteinuria, unspecified; H61.21 Impacted cerumen, right ear

== ENCOUNTER → 2025-01-22 10:16 | Outpatient (BNVA) | payer OTHER, SELFPAY | PROVIDERS: PCP Physician Assistant; Visit Provider Physician Assistant | DX: I10 Essential (primary) hypertension (principal); E78.9 Disorder of lipoprotein metabolism, unspecified; G47.33 Obstructive sleep apnea (adult) (pediatric); R80.9 Proteinuria, unspecified; H61.21 Impacted cerumen, right ear; Z13.31 Encounter for screening for depression; Z13.39 Encounter for screening examination for other mental health and behavioral disorders | CPT/HCPCS: 96127 ==

== ENCOUNTER 2025-04-22 09:58 | Outpatient (REF) | payer OTHER, SELFPAY ==
[2025-04-22 10:30] LABS: Hematocrit 42.1 % (42.0-52.0); Hemoglobin 14.4 g/dl (14.0-18.0); Mean Corpuscular HGB Conc 34.2 g/dl (31.0-36.0); Mean Corpuscular Hemoglobin 32.2 pg (27.0-33.0); Mean Corpuscular Volume 94.2 fL (80.0-98.0); NRBC Abs Auto 0.000 X10*3/uL (0.0-0.012); NRBC Pct Auto 0.0 /100WBC (0.0-0.2); Platelet Count 178 X10*3/uL (160-400); Red Blood Count 4.47 X10*6/uL (4.60-5.80); White Blood Count 4.6 X10*3/uL (4.8-10.8)
[2025-04-22 11:10] LABS: Alanine Aminotransferase 42 U/L (0-40); Albumin Level 4.4 g/dL (3.5-5.0); Alkaline Phosphatase 64 U/L (39-117); Anion Gap 11 (12-20); Aspartate Amino Transferase 47 U/L (5-37); Blood Urea Nitrogen 16 mg/dL (9-16); Calcium 9.0 mg/dL (8.4-10.2); Carbon Dioxide 26 mmol/L (22-29); Chloride 108 mmol/L (96-108); Cholesterol 198 mg/dL (<200); Estimated Glomerular Filt Rate > 60; HDL Cholesterol 46 mg/dL (>40); Potassium 4.1 mmol/L (3.3-5.1); Sodium 141 mmol/L (135-145); Total Protein 8.4 g/dL (6.5-8.0); Triglycerides 131 mg/dL (<150)
[2025-04-22 11:22] LABS: Microalbum/Creatinine Ratio Ur 4.8 ug/mg cr (<30)
--- OUTSIDE RECORDS SUMMARY | 2025-04-22 11:41 | XMS_ITS | Clinical Summary ---
Author Organization [facility] ity Address [address] [place] [address] Care Team Providers Care Issuing Operator Name Role Phone Unavailable Primary Care Provider [...] (2 - Td or Tdap) 08/25/2021 08/26/2011 Depression Screening 06/27/2024 COVID-19 Vaccine ( - 2023-2 5 season) 2025 Influenza Vaccine (#1) 2025 RSV Immunization Adult Patie nts (1 - 1-dose 75+ series) 2044 HIB Vaccines Aged Out No longer eligi [...]
== END 2025-04-22 09:59 | disposition home or self-care (01) ==
LOC: HO.LAB 09:58
PROVIDERS: PCP Physician Assistant; Visit Provider Physician Assistant
DX: I10 Essential (primary) hypertension (principal); E78.9 Disorder of lipoprotein metabolism, unspecified; R80.9 Proteinuria, unspecified
CPT/HCPCS: 36415; 80053; 80061; 82043; 82570; 85027

== ENCOUNTER 2025-04-24 09:52 | Outpatient (AMB) | payer OTHER, SELFPAY ==
--- NOTE | 2025-04-24 09:58 | MHC.PC.OV ---
Vital Signs 04/24/25 09:59 Height 5 ft 7 in Weight 196 lb 2 oz BMI 30.7 BP 130/70 Blood Pressure Location Lt brachial Position Sitting Pulse 80 Pulse Source Pulse Oximeter Temp 97.3 F Temp Source Temporal Artery Scan Pulse Oximetry (%) 94 Oxygen Delivery Method Room Air Intake Visit Reasons: f/u HTN/ ULCY Intake Note: Patient is here to follow up on HTN, LUCY. Assistant Plant Controller Required: No Statistical Machine Servicer: Not Required per policy Accompanied by: Self / Same As Patient Allergies No Known Allergies Allergy (Verified 04/24/25 10:06) Medication List - Last Reconciled 04/24/25 by Melvin Coreas PA-C amlodipine 5 mg PO DAILY blood pressure test kit-large As directed cyclobenzaprine 10 mg PO BEDTIME 14 days diclofenac sodium 50 mg PO DAILY 10 days ibuprofen 800 mg PO Q8H PRN 7 days loratadine 10 mg PO DAILY 90 days losartan 25 mg PO DAILY 90 days meclizine 25 mg PO TID PRN 10 days ropinirole 0.5 mg PO BEDTIME 90 days sertraline (Zoloft) 50 mg PO DAILY 90 days Tobacco use date assessed: 04/24/25 Dental Screening Dental Screen Date: 10/16/24 HPI f/u HTN/ LUCY HPI Details Patient is a 54 year-old male here today for a a follow-up visit ? Patient has a past medical history significant hypertension, major depressive disorder obstructive sleep apnea. Concern--> Patient reports back pain that has been bothering him for a couple of weeks after a period of improvement. His history is significant for arthritis and a prior MRI of the lumbar spine which showed spondylosis at the L3-L4 and L5-S1 levels. He was previously seen by pain management and was scheduled for a procedure, but did not follow through as his symptoms had resolved. Hypertension:? Blood pressure acceptable today in office, we have added losartan to his blood pressure med regime, he reports he has not taken his blood pressure medication today. He does report being under lot of stress as of late due to employment concerns. Have noted improved microalbuminuria most recent labs. .. Fatty liver disease: Continues to have slightly elevated elevated liver enzyme. Fib 4 score 2.24 Major depressive disorder:?? Reports his depression has been well controlled with current SSRI therapy. ? Denies any SI or HI .He does report his family members have told him he appears to be less stressed. . Obstructive sleep apnea: Recently had sleep study showing obstructive sleep apnea and has been started on CPAP machine. He is followed by [facility] Management of obstructive sleep apnea through CPAP has been unsuccessful due to equipment discomfort, fostering interest in alternate interventions. Patient has followed up with plastic surgeon about evaluation on alternative treatments for obstructive sleep apnea and he reports he was a candidate though further investigation needs to be done. Unfortunately has not gotten a call back for further investigation [facility] Medical History Bleeding hemorrhoids Lumbar paraspinal muscle spasm Hypertension Vertigo Physical exam Surgical History History of hemorrhoidectomy (2018) History of rectal sphincterotomy (12/03/19) History of eye surgery Family History Mother Hypertension Father Alzheimer disease Paternal Uncle Colon polyps Sister Lupus Social History Housing: House Alcohol intake: current Alcohol intake frequency: a few times a month Alcohol type: beer Patient Tobacco Use Status: Former Tobacco user e-Cigarette/Vaping Use: Never Used Second Hand Smoke Exposure: Yes service: No Current occupational status: employed 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 Current occupational exposures/hazards: No Cognitive needs: No Hearing needs: No Vision needs: Yes (glasses) Questionnaire Thrive Questionnaire Date Thrive assessed: 01/15/25 I am a: Patient What is your living situation today?: I have a steady place to live Within the past 12 months, did the food you bought not last and you didn't have the money to get more?: Often true Within the past 12 months, did you worry whether your food would run out before you got money to buy more?: Often true Do you have trouble paying for medicines?: No Do you have trouble getting transportation to medical appointments?: No Do you have trouble paying your heating and electricity bill?: No Do you have trouble taking care of your child, family member or friend?: No Do you have trouble with day-to-day activities such as bathing, preparing meals, shopping, managing finances, etc.?: No Are you currently unemployed and looking for a job?: No Are you interested in more education?: No Please select the resources that you would like help with: None Currently or been in a relationship where the following occur: No concerns reported THRIVE Score: 2 VANESSA-7 AMB Questionnaire VANESSA-7 Date VANESSA - 7 assessed: 01/22/25 Source: Developed by Drs. Jagdish Escalante, Katia Alarcon, Uriel Zuñiga and colleagues, with an educational hemant from [employer]. Review of Systems Const Denies headache(s) Eyes Denies loss of vision ENT Denies vertigo, Denies dizziness, Denies headache(s) and Denies sore throat Card Denies chest pain, Denies leg edema and Denies lightheadedness Resp Denies cough, Denies hemoptysis and Denies wheezing GI Denies abdominal pain, Denies melena, Denies constipation, Denies diarrhea and Denies vomiting Denies dysuria, Denies urinary frequency and Denies urinary urgency Musc Denies arthralgias, Denies joint swelling, Denies numbness and Denies tingling Neuro Denies Abnormal speech present, Denies behavioral changes, Denies vertigo, Denies dizziness, Denies headache(s), Denies loss of vision, Denies memory loss, Denies numbness and Denies tingling Psych Denies anxiety, Denies behavioral changes, Denies depression, Denies memory loss and Denies panic attacks Zenon/Lymph Denies easy bleeding and Denies easy bruising Aller/Immun Denies wheezing Physical exam (Primary Care) Vital Signs: Last Vital Signs Temp 97.3 F 04/24/25 09:59 Pulse 80 04/24/25 09:59 BP 130/70 04/24/25 09:59 Pulse Ox 94 04/24/25 09:59 Oxygen Delivery Method Room Air 04/24/25 09:59 BMI result Body Mass Index 30.7 Tobacco/Smoking Status: Tobacco use Status Tobacco use date assessed 04/24/25 04/24/25 10:02 Patient Tobacco Use Status Former Tobacco user 04/24/25 10:02 e-Cigarette/Vaping Use Never Used 04/24/25 10:02 Thrive Assessment: Date of Thrive Assessment Date Thrive assessed 01/15/25 04/24/25 10:02 Currently or been in a relationship where the following occur: No concerns reported Const General: healthy appearing, no acute distress, alert and awake Nutritional Appearance: well nourished Orientation/consciousness: oriented to person, oriented to place and oriented to time HENMT Ears: TM's normal bilaterally General nose exam: Normal nasal mucous membranes and turbinates present Eyes Conjunctivae: conjunctivae normal Sclerae: sclerae normal Pupils: Equal, round and reactive pupils present Neck Neck: Yes no lymphadenopathy and Yes no JVD Thyroid: Thyroid normal Carotids: no bruits Resp Effort & Inspection: normal respiratory effort and not tachypneic Auscultation: no crackles, no rales, no rhonchi and no wheezes Cardio Rate: regular rate Rhythm: regular rhythm Heart sounds: no murmurs and normal S1 and S2 GI Palpation (GI): Soft to palpation, nontender, no hepatomegaly and no splenomegaly Auscultation: normal bowel sounds Skin General skin exam: no rashes or lesions noted and dry skin Neuro General: oriented to person, oriented to place and oriented to time Cranial nerves: Yes Equal, round and reactive pupils present Speech: No Abnormal speech present Gait exam (Neuro): Normal gait present Motor exam (neuro): no tremor noted Extrem Right upper extremity: full ROM Left upper extremity: full ROM Right lower extremity: full ROM; no edema Left lower extremity: full ROM; no edema Psych Mental Status: mental status grossly normal Speech and movement: Normal speech and movement present Affect: normal affect Attitude: cooperative Thought process: Normal thought process present Coding Level of Care Code Est Pt Level 4 (12278) Diagnoses Primary hypertension I10 Hypertension type: primary hypertension Borderline high cholesterol E78.9 LUCY (obstructive sleep apnea) G47.33 Microalbuminuria R80.9 Spondylosis, lumbar, with myelopathy M47.16 Assessment & Plan Assessment & Plan (1) Hypertension: Code(s): I10 - Essential (primary) hypertension Category: Medical Qualifiers: Hypertension type: primary hypertension Qualified Code(s): I10 - Essential (primary) hypertension Plan: Patient's blood pressure acceptable today in office. Most recent microalbuminuria much improved. Continues on losartan and amlodipine with good effect. He does not regularly monitor his blood pressure at home. Goal blood pressures to be below 140/90 (2) Borderline high cholesterol: Code(s): E78.9 - Disorder of lipoprotein metabolism, unspecified Category: Medical Plan: Patient's most recent lipid panel showing excellent control of his total cholesterol and LDL. Will continue to work on lifestyle and dietary modifications (3) LUCY (obstructive sleep apnea): Comment: THIS GENTLEMAN HAS MODERATELY SEVERE OBSTRUCTIVE SLEEP APNEA. THE UNDERLYING ETIOLOGY IS. 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 HE IS USING CPAP REGULARLY AND BENEFITING. COMPLIANCE IS GOOD. HE IS ENCOURAGED TO KEEP ON USING IT EVERY NIGHT. AT LEAST FOR 6 HOURS WILL RECHECK HIM IN SIX MONTHS. Code(s): G47.33 - Obstructive sleep apnea (adult) (pediatric) Category: Medical Plan: Continues to follow up pulmonology. Patient has followed up with a plastic surgeon about alternative treatments for his obstructive sleep apnea though unfortunately has not got a call back for further evaluation We did discuss trying a side sleeping pillow for people with upper obstructive sleep apnea (4) Microalbuminuria: Code(s): R80.9 - Proteinuria, unspecified Category: Medical Plan: Does have a history of microalbuminuria though after adding losartan microalbuminuria improved. Goal blood pressures to be below 140/90 (5) Spondylosis, lumbar, with myelopathy: Code(s): M47.16 - Other spondylosis with myelopathy, lumbar region Category: Medical Plan: For the patient's recurrent low back pain, a prednisone taper will be prescribed to reduce inflammation, starting with three tablets for three days, then two tablets for three days, and one tablet for three days. Additionally, prescriptions for ibuprofen 800 mg and cyclobenzaprine 10 mg will be sent to the pharmacy. The patient was advised to take the cyclobenzaprine at night due to potential drowsiness and was counseled on light stretching for the back muscles Orders: Orders US abdomen comp w elastography Today R79.89 - Other specified abnormal findings of blood chemistry Medications: New prednisone Take 3 tablets x3 days, 2 tablets x3 days, 1 tablet x3 days 10 mg PO DIRECTED 18 tabs 0RF 9 days M47.16 - Other spondylosis with myelopathy, lumbar region Refilled cyclobenzaprine 10 mg PO BEDTIME 14 tabs 0RF 14 days M54.50 - Low back pain, unspecified ibuprofen 800 mg PO Q8H PRN 21 tabs 1RF pain 7 days K62.89 - Other specified diseases of anus and rectum Discontinued diclofenac sodium Discontinued Reason: Doctor's Order 50 mg PO DAILY 10 days 10 tabs 0RF M62.830 - Muscle spasm of back
[2025-04-24 09:59] VITALS: BP 130/70; PULSE 80; TEMP 36.3; O2SAT 94; BMI 30.7
--- OUTSIDE RECORDS SUMMARY | 2025-04-24 11:53 | XMS_ITS | Clinical Summary ---
Author Organization [facility] ity Address [address] [place] [address] Care Team Providers Care Benefits Sales Consultant Name Role Phone Unavailable Primary Care Provider [...]
== END 2025-04-24 10:23 | disposition home or self-care (01) ==
LOC: HO.HMCH 09:53
PROVIDERS: PCP Physician Assistant; Visit Provider Physician Assistant
DX: I10 Essential (primary) hypertension (principal); E78.9 Disorder of lipoprotein metabolism, unspecified; G47.33 Obstructive sleep apnea (adult) (pediatric); R80.9 Proteinuria, unspecified; M47.16 Other spondylosis with myelopathy, lumbar region